=== PATIENT | male | born 1955 | race Caucasian/White ===

== ENCOUNTER 2021-05-30 03:31 | Inpatient (IN) | payer MEDICAID, SELFPAY ==
[2021-05-30] VITALS (15 sets, daily range): BP systolic 116–142; BP diastolic 68–93; PULSE 79–116; RESP 16–31; TEMP 35.4–37; O2SAT 92–99; BMI 23.8
--- NOTE | ~2021-05-30 | NM_ITS ---
EXAMINATION: PULMONARY PERFUSION STUDY CLINICAL INFORMATION: Rule out PE. COMPARISON: No previous lung scan is available for comparison. A radiograph of the chest dated 05/30/[address] scan of the chest on the same date, the same date as this lung scan, are available for comparison. TECHNIQUE: Following the intravenous administration of 4.0 mCi Tc-99m MAA an 8-view perfusion study was performed using a dual detector gamma scintillation camera. No ventilation images were obtained. FINDINGS: Perfusion images: No segmental perfusion defects are present. There is a mild decrease in activity in the apical and posterior segments of the right upper lobe but some perfusion in this region persists. There is minimal heterogeneity in the other lung forrester. The cardiac silhouette is prominent. The contemporaneous chest CT scan shows airspace opacities in the right lung apex which correspond to the perfusion abnormalities described above. Additional airspace opacities are present bilaterally. There is also cardiomegaly evident on the CT images. NM/NM pul perfusion IMPRESSION: Very low probability of pulmonary embolism. Nonspecific abnormalities which are most prominent in the right upper lobe are noted likely due to airspace disease or other parenchymal lung disease.
--- NOTE | ~2021-05-30 | XR_ITS ---
EXAMINATION: XR CHEST CLINICAL INFORMATION: CHF follow up COMPARISON: May 30, 2021 TECHNIQUE: AP portable view of the chest was obtained. FINDINGS: There has been improvement in left base disease and small pleural effusion. No new confluent parenchymal disease identified. There has been improvement in interstitial disease seen at the right base as well. No pneumothorax identified. Pacemaker in place. XR/XR chest 1V IMPRESSION: Improved pulmonary edema.
--- NOTE | ~2021-05-30 | XR_ITS ---
EXAMINATION: XR CHEST CLINICAL INFORMATION: Follow-up CHF COMPARISON: Previous chest x-ray from yesterday TECHNIQUE: Frontal view of the chest was obtained. FINDINGS: The cardiac silhouette is enlarged but stable. There is a left subclavian AICD with tip projecting over the ventricular apex. Hilar and mediastinal contours are unremarkable. The lungs are clear. There is no evidence of pulmonary edema. There is no pleural effusion. There are are mild degenerative changes of the spine. XR/XR chest 1V IMPRESSION: Stable enlargement of the cardiac silhouette. No evidence of CHF.
--- NOTE | ~2021-05-30 | CT_ITS ---
EXAM: NONCONTRAST CT OF THE CHEST; NONCONTRAST CT OF THE ABDOMEN AND PELVIS INDICATION: Shortness of breath, left-sided abdominal pain COMPARISON: None TECHNIQUE: No IV contrast was utilized. Multidetector helical imaging was performed through the chest, abdomen, and pelvis. Coronal and sagittal reformatted images were created at the technologist workstation. DOSE LOWERING TECHNIQUES: This CT examination was performed using dose optimization techniques as appropriate, variously including the following: - Automated exposure control - Adjustment of mA and/or kV according to patient size (this includes techniques or standardized protocols for targeted exams were dose is matched to indication/reason for exam; i.e. extremities or head) - Use of iterative reconstruction technique DLP: 838 mGy-cm FINDINGS: Chest: There are multifocal regions of groundglass bilaterally. There are curvilinear opacities towards the lung bases favoring subsegmental atelectasis or scarring. Trace pleural effusions are present. No pneumothorax. The visualized thyroid gland is unremarkable. There are subcentimeter mediastinal lymph nodes within the range of normal variation. There is cardiomegaly without pericardial effusion. Ascending aorta measures approximately 4.2 cm in diameter. Scattered atherosclerotic calcifications are present. Coronary artery calcifications are present. Stent is suspected in the LAD. No axillary lymphadenopathy is present. Multilevel degenerative changes are present in the thoracic spine. Abdomen/Pelvis: The liver is homogeneous in attenuation without intrahepatic biliary ductal dilatation. The gallbladder is unremarkable. The unenhanced spleen, pancreas, and adrenal glands are within normal limits. The unenhanced kidneys are unremarkable without hydronephrosis. No renal or ureteral calculi are present. Nonspecific bilateral perinephric stranding. The urinary bladder is unremarkable. The prostate and seminal vesicles are unremarkable. There is colonic diverticulosis without diverticulitis. No evidence of bowel obstruction. The appendix is unremarkable. Trace pelvic free fluid is noted. There is diffuse atherosclerotic calcification along the aorta. No retroperitoneal or pelvic lymphadenopathy is seen. Posterior fusion hardware is present at L4-L5. Status post right total hip arthroplasty. Degenerative changes are noted in the spine. CT/CT abdomen pelvis wo con IMPRESSION: 1. Multifocal pulmonary groundglass opacities bilaterally which could be secondary to edema or infection in the proper clinical setting. 2. Trace pleural effusions. 3. Cardiomegaly. 4. Dilated ascending aorta to approximately 4.2 cm. 5. Trace pelvic free fluid. 6. Colonic diverticulosis without diverticulitis.
--- NOTE | ~2021-05-30 | XR_ITS ---
EXAMINATION: XR CHEST CLINICAL INFORMATION: Shortness of breath COMPARISON: None TECHNIQUE: Frontal view of the chest was obtained. FINDINGS: Left-sided AICD lead tip overlies the right ventricle. Low lung volumes are symmetric. There is mild streaky left basilar retrocardiac opacity. There is prominence of the central vasculature and interstitium. No pneumothorax. Trace left pleural effusion is difficult to exclude. Cardiac silhouette is borderline enlarged. No acute osseous findings are seen. XR/XR chest 1V IMPRESSION: Prominent central vasculature and interstitium suggesting congestion and developing interstitial edema. Mild streaky left basilar opacities may reflect atelectasis.
--- NOTE | ~2021-05-30 | US_ITS ---
EXAMINATION: US VENOUS ULTRASOUND WITH DOPPLER LOWER EXTREMITY, BILATERAL CLINICAL INFORMATION: Bilateral lower extremity pain. Assess for occult DVT. COMPARISON: None TECHNIQUE: Ultrasound of the deep veins is performed from the hip to the calf with compression sonography and color and pulse Doppler assessment. Spectral analysis with color-flow imaging is performed. FINDINGS: RIGHT: There is normal venous compression and respiratory variation and augmented flow. The visualized common femoral vein, superficial femoral vein, profunda femoral vein, popliteal vein, and the trifurcation region shows no evidence of deep venous thrombosis. There is no significant popliteal fossa cyst. LEFT: There is normal venous compression and respiratory variation and augmented flow. The visualized common femoral vein, superficial femoral vein, profunda femoral vein, popliteal vein, and the trifurcation region shows no evidence of deep venous thrombosis. There is no significant popliteal fossa cyst. US/US venous duplex LE BI IMPRESSION: No DVT demonstrated in the bilateral lower extremity.
--- NOTE | 2021-05-30 03:43 | ECG_ITS ---
Test Reason : CHEST PAIN Blood Pressure : / mmHG Vent. Rate : 104 BPM Atrial Rate : 104 BPM P-R Int : 234 ms QRS Dur : 172 ms QT Int : 344 ms P-R-T Axes : 021 -67 105 degrees QTc Int : 452 ms Sinus tachycardia with 1st degree A-V block Possible Left atrial enlargement Right bundle branch block Left anterior fascicular block Bifascicular block Septal infarct , age undetermined Possible Lateral infarct , age undetermined Abnormal ECG No previous ECGs available Referred By: Padmini Jimenez Electronically Signed By:MIKEY ZULETA
[2021-05-30] MEDS: methylPREDNISolone Sod Succ 125 MG/2 ML VIAL IVPUSH (03:45)
--- NOTE | 2021-05-30 03:50 | ED.SOB ---
HPI - SOB/Dyspnea General Chief Complaint: Dyspnea Stated Complaint: SOB/CP Time Seen by Provider: 05/30/21 03:42 Source: patient and EMS Mode of arrival: EMS History of Present Illness HPI Narrative: 65-year-old male with history of CHF and COPD is brought in from [facility] by EMS with shortness of breath, chest pain, poor p.o. intake and coughing up brown phlegm for 2 days. as per EMS patient had SpO2 of 88% on his home dose of 3 L via nasal cannula. Patient denies any fever, chills and states that the chest pain is all throughout and into his abdomen. Otherwise, he denies any nausea, vomiting, fever, chills. Related Data Allergies Allergy/AdvReac Type Severity Reaction Status Date / Time No Known Allergies Allergy Unverified 05/30/21 03:42 Review of Systems Review of Systems: Pertinent positives and negatives as stated in HPI 10 point review of systems is otherwise negative. PMFSH Past Medical History Source: nursing notes reviewed Social History Social History Advance Directives: No Advance Directives Information Provided: No Physical Exam Vital Signs: Vital Signs: Last Vital Signs Pulse 93 05/30/21 07:05 Resp 25 H 05/30/21 07:05 BP 142/81 H 05/30/21 07:05 Pulse Ox 96 05/30/21 07:05 Body Mass Index 23.8 VITAL SIGNS: Reviewed. GENERAL: Well developed, well nourished, in no acute distress. HEAD: Normocephalic/atraumatic EYES: PERRLA, EOMI OROPHARYNX: no oral lesions noted, posterior pharynx clear NECK: Supple, no adenopathy LUNGS: Increased work of breathing with retractions, by basilar rales with rhonchi noted on the right SpO2<97> on BiPAP CARDIOVASCULAR: Regular rate and rhythm without noted murmurs, no JVD but extremity edema. ABDOMEN: Soft, non-tender, non-distended with bowel sounds SKIN: Inspection of the skin reveals no rashes NEUROLOGIC: Alert and oriented x 4. Strength and sensation to light touch were grossly intact x 4. Course Course Course Narrative: 65-year-old male with history and clinical presentation suggestive CHF exacerbation. Patient placed on BiPAP, received albuterol, Solu-Medrol, Bumex. Review VBG inconsistent with COPD exacerbation and in contrast chest x-ray and BNP consistent with acute CHF exacerbation with corresponding KAITY (however there are no prior records for comparison so unclear whether not patient has a component of CKD baseline). There is no evidence of infection at this time. All investigations were reviewed. The noted lactic acid elevation initially secondary to acute respiratory failure as repeat shows resolution. In addition, patient has elevated troponins at 51.7 but repeat does not meet delta 50% and thought to be demand related in the absence of clear EKG findings to suggest otherwise. Due to patient's complaint of left lateral chest wall pain patient underwent CT chest/abdomen/pelvis but without contrast given creatinine level was 1.67. There was noted ascending aortic dilation 4.2cm. Have tried to titrate patient off of BiPAP without success. Patient transitioned onto high-flow and will re-evaluate, but discussed the case with Dr. Fang. Records request was placed to [facility]. Signed out to Dr Sharma MDM - SOB/Dyspnea Lab Data Result diagrams: 05/30/21 03:55 05/30/21 03:55 Labs: Lab Results 05/30/21 05/30/21 05/30/21 Range/Units 03:55 03:55 03:55 WBC 10.5 (4.8-10.8) X10*3/uL RBC 4.79 (4.60-5.80) X10*6/uL Hgb 14.4 (14.0-18.0) g/dl Hct 44.5 (42-52) % MCV 92.9 (80-98) fL MCH 30.1 (27.0-33.0) pg MCHC 32.4 (31.0-36.0) g/dl RDW 17.7 H (11.0-16.0) % Plt Count 149 L (160-400) X10*3/uL MPV 11.7 (9.4-12.4) fL Immature Gran % (Auto) 0.3 (0.0-0.4) % Neut % (Auto) 81.3 H (45-73) % Lymph % (Auto) 6.7 L (20-40) % [place] % (Auto) 11.1 H (2-11) % Eos % (Auto) 0.3 (0-4) % Baso % (Auto) 0.3 (0-2) % Lymph # (Auto) 0.7 L (1.2-4.9) X10*3/uL [place] # (Auto) 1.2 (0.1-1.2) X10*3/uL Eos # (Auto) 0.0 (0.0-0.4) X10*3/uL Baso # (Auto) 0.0 (0.0-0.2) X10*3/uL Abs Immat Gran (auto) 0.03 (0.00-0.03) X10*3/uL Absolute Neuts (auto) 8.5 H (2.0-8.3) X10*3/uL Absolute Nucleated RBC 0.000 (0.0-0.012) X10*3/uL Nucleated RBC % (auto) 0.0 (0.0-0.2) /100WBC PT (9.9-13.0) SEC INR (0.9-1.1) VBG pH (7.32-7.43) VBG pCO2 mmHg VBG pO2 mmHg VBG HCO3 (22-26) mmol/L VBG O2 Saturation % VBG Base Excess mmol/L Sodium (135-145) mmol/L Potassium (3.3-5.1) mmol/L Chloride (96-108) mmol/L Carbon Dioxide (22-29) mmol/L Anion Gap (12-20) BUN (9-16) mg/dL Creatinine (0.5-1.4) mg/dL Estim Creat Clear Calc Estimated GFR Random Glucose (60-115) mg/dL Lactic Acid (0.5-2.0) mmol/L Lactic Acid Fup @ 2Hr (0.5-2.0) mmol/L Calcium (8.4-10.2) mg/dL Magnesium (1.6-2.6) mg/dL Total Bilirubin (0.0-1.0) mg/dL AST (5-37) U/L ALT (0-40) U/L Alkaline Phosphatase (39-117) U/L Troponin I High Sens 51.7 H* (<3.5-35.0) ng/L B-Natriuretic Peptide 4297 H (<100) pg/mL Total Protein (6.5-8.0) g/dL Albumin (3.5-5.0) g/dL Urine Color Urine Appearance Urine pH (5.0-8.0) Ur Specific [place] (1.005-1.025) Urine Protein (NEG-TRACE) MG/DL Urine Glucose (UA) (NEG) MG/DL Urine Ketones (NEG) MG/DL Urine Blood (NEG) Urine Nitrite (NEG) Ur Leukocyte Esterase (NEG) COVID-19 (ISHMAEL) Negative (Negative) COVID-19 Clin Com See Note 05/30/21 05/30/21 05/30/21 Range/Units 03:55 03:55 03:55 WBC (4.8-10.8) X10*3/uL RBC (4.60-5.80) X10*6/uL Hgb (14.0-18.0) g/dl Hct (42-52) % MCV (80-98) fL MCH (27.0-33.0) pg MCHC (31.0-36.0) g/dl RDW (11.0-16.0) % Plt Count (160-400) X10*3/uL MPV (9.4-12.4) fL Immature Gran % (Auto) (0.0-0.4) % Neut % (Auto) (45-73) % Lymph % (Auto) (20-40) % [place] % (Auto) (2-11) % Eos % (Auto) (0-4) % Baso % (Auto) (0-2) % Lymph # (Auto) (1.2-4.9) X10*3/uL [place] # (Auto) (0.1-1.2) X10*3/uL Eos # (Auto) (0.0-0.4) X10*3/uL Baso # (Auto) (0.0-0.2) X10*3/uL Abs Immat Gran (auto) (0.00-0.03) X10*3/uL Absolute Neuts (auto) (2.0-8.3) X10*3/uL Absolute Nucleated RBC (0.0-0.012) X10*3/uL Nucleated RBC % (auto) (0.0-0.2) /100WBC PT 19.6 H (9.9-13.0) SEC INR 1.7 H (0.9-1.1) VBG pH (7.32-7.43) VBG pCO2 mmHg VBG pO2 mmHg VBG HCO3 (22-26) mmol/L VBG O2 Saturation % VBG Base Excess mmol/L Sodium 141 (135-145) mmol/L Potassium 4.2 (3.3-5.1) mmol/L Chloride 106 (96-108) mmol/L Carbon Dioxide 22 (22-29) mmol/L Anion Gap 17 (12-20) BUN 32 H (9-16) mg/dL Creatinine 1.67 H (0.5-1.4) mg/dL Estim Creat Clear Calc 45.5 Estimated GFR 41 Random Glucose 138 H (60-115) mg/dL Lactic Acid 3.0 H* (0.5-2.0) mmol/L Lactic Acid Fup @ 2Hr (0.5-2.0) mmol/L Calcium 9.6 (8.4-10.2) mg/dL Magnesium 2.2 (1.6-2.6) mg/dL Total Bilirubin 0.6 (0.0-1.0) mg/dL AST 24 (5-37) U/L ALT 35 (0-40) U/L Alkaline Phosphatase 80 (39-117) U/L Troponin I High Sens (<3.5-35.0) ng/L B-Natriuretic Peptide (<100) pg/mL Total Protein 6.6 (6.5-8.0) g/dL Albumin 4.2 (3.5-5.0) g/dL Urine Color Urine Appearance Urine pH (5.0-8.0) Ur Specific [place] (1.005-1.025) Urine Protein (NEG-TRACE) MG/DL Urine Glucose (UA) (NEG) MG/DL Urine Ketones (NEG) MG/DL Urine Blood (NEG) Urine Nitrite (NEG) Ur Leukocyte Esterase (NEG) COVID-19 (ISHMAEL) (Negative) COVID-19 Clin Com 05/30/21 05/30/21 05/30/21 Range/Units 04:02 06:06 06:58 WBC (4.8-10.8) X10*3/uL RBC (4.60-5.80) X10*6/uL Hgb (14.0-18.0) g/dl Hct (42-52) % MCV (80-98) fL MCH (27.0-33.0) pg MCHC (31.0-36.0) g/dl RDW (11.0-16.0) % Plt Count (160-400) X10*3/uL MPV (9.4-12.4) fL Immature Gran % (Auto) (0.0-0.4) % Neut % (Auto) (45-73) % Lymph % (Auto) (20-40) % [place] % (Auto) (2-11) % Eos % (Auto) (0-4) % Baso % (Auto) (0-2) % Lymph # (Auto) (1.2-4.9) X10*3/uL [place] # (Auto) (0.1-1.2) X10*3/uL Eos # (Auto) (0.0-0.4) X10*3/uL Baso # (Auto) (0.0-0.2) X10*3/uL Abs Immat Gran (auto) (0.00-0.03) X10*3/uL Absolute Neuts (auto) (2.0-8.3) X10*3/uL Absolute Nucleated RBC (0.0-0.012) X10*3/uL Nucleated RBC % (auto) (0.0-0.2) /100WBC PT (9.9-13.0) SEC INR (0.9-1.1) VBG pH 7.33 (7.32-7.43) VBG pCO2 44 mmHg VBG pO2 37 mmHg VBG HCO3 23 (22-26) mmol/L VBG O2 Saturation 50.0 % VBG Base Excess -2.3 mmol/L Sodium (135-145) mmol/L Potassium (3.3-5.1) mmol/L Chloride (96-108) mmol/L Carbon Dioxide (22-29) mmol/L Anion Gap (12-20) BUN (9-16) mg/dL Creatinine (0.5-1.4) mg/dL Estim Creat Clear Calc Estimated GFR Random Glucose (60-115) mg/dL Lactic Acid (0.5-2.0) mmol/L Lactic Acid Fup @ 2Hr 2.0 (0.5-2.0) mmol/L Calcium (8.4-10.2) mg/dL Magnesium (1.6-2.6) mg/dL Total Bilirubin (0.0-1.0) mg/dL AST (5-37) U/L ALT (0-40) U/L Alkaline Phosphatase (39-117) U/L Troponin I High Sens (<3.5-35.0) ng/L B-Natriuretic Peptide (<100) pg/mL Total Protein (6.5-8.0) g/dL Albumin (3.5-5.0) g/dL Urine Color YELLOW Urine Appearance CLEAR Urine pH 5.5 (5.0-8.0) Ur Specific [place] 1.020 (1.005-1.025) Urine Protein NEG (NEG-TRACE) MG/DL Urine Glucose (UA) NEG (NEG) MG/DL Urine Ketones NEG (NEG) MG/DL Urine Blood NEG (NEG) Urine Nitrite NEG (NEG) Ur Leukocyte Esterase NEG (NEG) COVID-19 (ISHMAEL) (Negative) COVID-19 Clin Com ECG Data Attestation: I personally reviewed and interpreted this ECG as follows: Prior ECG tracings: not available for review Interpretation: 0403: Sinus tachycardia with first-degree AV block, RBBB,ND-234, QRS-172,QTc-452 0655: Sinus Rhythm with 1st degree AV block, RBBB, ND-230, QRS-176, QTc-532 Discharge Plan Discharge Clinical Impression: Acute respiratory failure, CHF exacerbation Patient Disposition: Admitted As Inpatient
[2021-05-30 04:02] LABS: MANUAL DIFF FLAG NO
[2021-05-30 04:04] LABS: Basophils Percent Auto 0.3 % (0-2); Eosinophils Percent Auto 0.3 % (0-4); Hematocrit 44.5 % (42-52); Hemoglobin 14.4 g/dl (14.0-18.0); Imm Gran Abs Auto 0.03 X10*3/uL (0.00-0.03); Imm Gran Pct Auto 0.3 % (0.0-0.4); Lymphocytes Absolute Auto 0.7 X10*3/uL (1.2-4.9); Lymphocytes Percent Auto 6.7 % (20-40); Mean Corpuscular HGB Conc 32.4 g/dl (31.0-36.0); Mean Corpuscular Hemoglobin 30.1 pg (27.0-33.0); Mean Corpuscular Volume 92.9 fL (80-98); Mean Platelet Volume 11.7 fL (9.4-12.4); Monocytes Absolute Auto 1.2 X10*3/uL (0.1-1.2); Monocytes Percent Auto 11.1 % (2-11); Neutrophils Absolute Auto 8.5 X10*3/uL (2.0-8.3); Neutrophils Percent Auto 81.3 % (45-73); Platelet Count 149 X10*3/uL (160-400); Red Blood Count 4.79 X10*6/uL (4.60-5.80); Red Cell Distribution Width 17.7 % (11.0-16.0); White Blood Count 10.5 X10*3/uL (4.8-10.8)
[2021-05-30 04:06] LABS: Venous Blood Gas Refer to POC result
[2021-05-30 04:07] LABS: VBG Base Excess -2.3 mmol/L; VBG HCO3 23 mmol/L (22-26); VBG pCO2 44 mmHg; VBG pH 7.33 (7.32-7.43); VBG pO2 37 mmHg
[2021-05-30 04:15] LABS: INTERNATIONAL NORM RATIO 1.7 (0.9-1.1); Prothrombin Time 19.6 SEC (9.9-13.0)
[2021-05-30] MEDS: Albuterol Sulfate (0.083%) 2.5 MG/3 ML VIAL.NEB 5 MG INHALE (04:17)
[2021-05-30 04:27] LABS: COVID-19 Test Negative (Negative); IDNOW Serial# 9DD0AD1C
[2021-05-30 04:32] LABS: Alanine Aminotransferase 35 U/L (0-40); Albumin Level 4.2 g/dL (3.5-5.0); Alkaline Phosphatase 80 U/L (39-117); Anion Gap 17 (12-20); Aspartate Amino Transferase 24 U/L (5-37); Bilirubin Total 0.6 mg/dL (0.0-1.0); Blood Urea Nitrogen 32 mg/dL (9-16); Calcium 9.6 mg/dL (8.4-10.2); Carbon Dioxide 22 mmol/L (22-29); Chloride 106 mmol/L (96-108); Creatinine Clr Calc Pharmacy 45.5; Estimated Glomerular Filt Rate 41; Glucose Random 138 mg/dL (60-115); Magnesium 2.2 mg/dL (1.6-2.6); Potassium 4.2 mmol/L (3.3-5.1); Sodium 141 mmol/L (135-145); Total Protein 6.6 g/dL (6.5-8.0)
[2021-05-30 04:34] LABS: B Type Natriuretic Peptide 4297 pg/mL (<100)
[2021-05-30] MEDS: Morphine Sulfate 2 MG/ML CARTRIDGE 1 MG IVPUSH ×2 (04:38→06:07)
[2021-05-30 04:41] LABS: Troponin-I High Sensitivity 51.7 ng/L (<3.5-35.0)
[2021-05-30] MEDS: Bumetanide 1 MG/4 ML VIAL 2 MG IVPUSH (05:11)
--- NOTE | 2021-05-30 05:23 | PC.NURSE ---
pt off to CT. pt placed on 15L NRB for transport. RT following bedside during transport to CT
[2021-05-30 06:01] LABS: Reflex Lactate? Lactic Acid Added
--- NOTE | 2021-05-30 06:43 | ECG_ITS ---
Test Reason : SOB Blood Pressure : / mmHG Vent. Rate : 095 BPM Atrial Rate : 095 BPM P-R Int : 230 ms QRS Dur : 176 ms QT Int : 424 ms P-R-T Axes : 031 -77 099 degrees QTc Int : 532 ms Sinus rhythm with 1st degree A-V block with occasional Premature ventricular complexes Possible Left atrial enlargement Right bundle branch block Left anterior fascicular block Bifascicular block Septal infarct (cited on or before 30-MAY-2021) T wave abnormality, consider lateral ischemia Abnormal ECG When compared with ECG of 30-MAY-2021 04:03, Premature ventricular complexes are now Present Borderline criteria for Lateral infarct are no longer Present Serial changes of Septal infarct Present Referred By: Padmini Jimenez Electronically Signed By:MIKEY ZULETA
[2021-05-30 07:13] LABS: Appearance Urine CLEAR; Color Urine YELLOW; Glucose Urine UA NEG (NEG); Leukocyte Esterase Urine NEG (NEG); Nitrite Urine NEG (NEG); PH 5.5 (5.0-8.0); Urine Blood NEG (NEG); Urine Ketones NEG (NEG); Urine Protein NEG (NEG-TRACE)
--- NOTE | 2021-05-30 07:25 | PC.NURSE ---
report taken from eric marshall pt here for acute chf/copd exac. on bipap att, rr even/unlabored, satting 96%. alert and oriented. iv dressing changed, repositioned in bed, offers no new complaints. vss. pending inpt admission. awaiting lab results. wctm.
[2021-05-30] MEDS: Bumetanide 1 MG/4 ML VIAL IVPUSH (09:11)
[2021-05-30] MEDS: HYDROmorphone HCl 2 MG/ML VIAL 1 MG IVPUSH (09:11)
--- NOTE | 2021-05-30 10:19 | W.PM.CCCN ---
History of Present Illness Data of Consult Service Date: 05/30/21 Requesting physician: Padmini Jimenez Primary Care Provider: Unknown Physician HPI I was asked by Dr. Jimenez to see Mr. Friedman in the ED bec of respiratory difficulty. The patient is a 65-year-old male, never seen here before at [facility].? He has h/o DC and CHF and COPD.? From what he told me, it sounds like his ejection fraction is about 25%.? 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 He also told me he has weak kidneys. He was brought in from [facility] by EMS because shortness of breath, chest pain, poor p.o. intake and coughing up brown phlegm for 2 days. ?At the scene, Sat was 88% on his home dose of 3 L NC oxygen. ?The patient denied fever, chills and stated that the chest pain was all throughout his chest and neck and into his abdomen.? It was sharp in nature.? Denied nausea, vomiting, fever, chills. In the ED, initial VS showed Hr 116, BP 1223/68,RR 30, Sat 97% on 40% biPAP.? He had no JVD.? He had bibasilar rales and rhonchi.? Labs were notable for white count of 10, hemoglobin 14, BUN/creatinine 32/1.6, potassium 4.2, bicarb 22, lactate 3.0, troponin 51, BNP 4297. EKG showed sinus tachycardia with 1st degree AV block and right bundle branch block with old septal infarct and loss of R-waves in V5 -6. No acute ST changes.? Repeat troponin was 68. The patient was given Dilaudid and Bumex 2 mg. He put out 200 cc, according to the ED nurse.? He was able to be weaned down to high-flow.? I was then called to see him. On my exam in the ED, the patient was fully awake, and talking easily.? He was in absolutely no distress, looked nontoxic, and not unwell. ?The main thing he was complaining about to me was the chest pain that he was having, as described above, which was surprising because, again ?he was in no distress, he certainly did not behave as if he was having significant pain. ?He did not describe tearing chest pain. ?Respiratory rate was about 20, very minimally labored, with deep breathing.? Sat was 93% on high-flow nasal cannula 50 L/50%.? Heart rate was 90s, blood pressure 142/81.? Temperature has not been recorded.? There is no jugular venous distention with the head of the bed at about 45 degrees.? He has bilateral rales.? There is no peripheral edema. Chest x-ray and noncontrast chest CT show pulmonary congestion consistent with pulmonary edema.? The ascending aorta is dilated to 4.2 cm. IMPRESSION:? History, exam, and labs, are consistent with acute congestive heart failure.? I do not think the chest pain that he is having is ischemic in nature.? I also doubt he is having aneurysmal pain, altho this should be explored further with thoracic or cardiology.? (Specifically, does he need an angiogram or SOTO?) Suggest treatment now with another 1 mg Dilaudid, another 2 mg Bumex, and afterload reduction.? I would give him 2 in of nitropaste now.? The patient should have an echo this morning, and Cardiology consulted.? Most importantly, we need to get his records from [facility] to look at his last echo, his BNP trend, and his recent renal indices.? Also, is his thoracic aortic dilatation noted previously. The patient may be admitted to [facility].? Please call back if further assistance is needed. D/W Dr. Sharma in the ED. Time:? 60 min. [facility] Social History Social History Alcohol intake: never Patient Tobacco Use Status: Former Tobacco user Smoked in Last 30 Days: No Use of substances other than those prescribed or required for medical reasons: No Advance Directives: No Advance Directives Information Provided: No Meds Allergies Allergy/AdvReac Type Severity Reaction Status Date / Time No Known Allergies Allergy Unverified 05/30/21 03:42 Physical Exam Vital Signs: Vital Signs: Last Vital Signs Pulse 84 05/30/21 10:03 Resp 23 H 05/30/21 10:03 BP 132/80 05/30/21 10:03 Pulse Ox 92 05/30/21 10:03 Body Mass Index 23.8 Results Labs CBC & Chem 7: 05/30/21 03:55 05/30/21 03:55 Labs: Short CBC 05/30/21 Range/Units 03:55 WBC 10.5 (4.8-10.8) X10*3/uL Hgb 14.4 (14.0-18.0) g/dl Hct 44.5 (42-52) % Plt Count 149 L (160-400) X10*3/uL BMP 05/30/21 03:55 Sodium 141 Potassium 4.2 Chloride 106 Carbon Dioxide 22 BUN 32 H Creatinine 1.67 H Calcium 9.6 Liver Function 05/30/21 Range/Units 03:55 Total Bilirubin 0.6 (0.0-1.0) mg/dL AST 24 (5-37) U/L ALT 35 (0-40) U/L Alkaline Phosphatase 80 (39-117) U/L Albumin 4.2 (3.5-5.0) g/dL Urine 05/30/21 Range/Units 06:58 Urine Color YELLOW Urine Appearance CLEAR Urine pH 5.5 (5.0-8.0) Ur Specific [place] 1.020 (1.005-1.025) Urine Protein NEG (NEG-TRACE) MG/DL Urine Glucose (UA) NEG (NEG) MG/DL
[2021-05-30] MEDS: Nitroglycerin 2 % Oint 1 GM Packet 0.5 INCH TRANSDERMA (11:19)
--- NOTE | 2021-05-30 15:28 | P.HPHOSP_ITS ---
History of Present Illness Date of Service: 05/30/21 Chief Complaint: Shortness of breath A 65 years old male patient with PMH CAD, CHF, COPD with presumed low EF per the patient who presented to the hospital with worsening shortness of breath and lethargy. The patient reports that for the last week or so he has been noticing worsening shortness of breath upon ambulation. He uses 3 L at home at baseline but that was not enough so he had to upper that to 5 L for the last today and to 30 L today with no feeling of relief. He denies any chest pain but reporting that he has dyspnea with minimal exertion, orthopnea and PNDs. 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 Reviewing the chart from [facility] I could not find any previous echo for him. His blood work is similar to what we found today. In the emergency he was found to be hypoxic and placed on BiPAP with fair response at the beginning. After removing the BiPAP the patient desaturated and felt treated bad so he was started on high-flow oxygen and evaluated by paint tester who recommended for the patient to be admitted to the medical floor. Admitted for further evaluation and treatment. Review of Systems Review of Systems: No fever, chills or weakness No chest pain, palpitation Dyspnea on exertion, shortness of breath at rest, PNDs No abdominal pain, nausea or vomiting No urinary symptoms No any rash or wounds PMFSH Social History Alcohol intake: never Patient Tobacco Use Status: Former Tobacco user Smoked in Last 30 Days: No Use of substances other than those prescribed or required for medical reasons: No Advance Directives: No Advance Directives Information Provided: No service: Yes Current occupational status: unemployed Meds Allergies Allergy/AdvReac Type Severity Reaction Status Date / Time No Known Allergies Allergy Unverified 05/30/21 03:42 Active Medications: Current Medications Generic Name Dose Route Start Last Admin Trade Name Freq PRN Reason Stop Dose Admin Acetaminophen 650 mg 05/30/21 15:21 Acetaminophen 325 Mg Tablet PO Q6H PRN Pain, Mild (Pain Scale 1-3) Furosemide 40 mg 05/30/21 17:00 Furosemide 40 Mg/4 Ml Vial IVPUSH BIDWM DEXTER Protocol Heparin Sodium (Porcine) 5,000 unit 05/30/21 19:30 Heparin Sodium,Porcine 5,000 Unit/Ml Vial SUBCUT Q12H [facility] Morphine Sulfate 2 mg 05/30/21 15:21 Morphine Sulfate 4 Mg/Ml Cartridge IVPUSH Q4H PRN Pain, Severe (Pain Scale 7-10) Protocol Ondansetron HCl 4 mg 05/30/21 15:21 Ondansetron Hcl 4 Mg/2 Ml Vial IVPUSH Q8H PRN Nausea and Vomiting Pharmacy Consult 1 each 05/30/21 15:21 Consult Rx Perform Med Rec MISCELLANE ONCE PRN Consult order Sodium Chloride 3 ml 05/30/21 16:00 05/30/21 15:27 0.9 % Sodium Chloride Flush 3 Ml Syringe IVFLUSH Not Given QSHIFT [facility] Home Medications Medication Instructions Recorded Confirmed Last Taken Type acetaminophen 325 mg tablet 325 mg PO TID@0900,1300,1700 05/30/21 05/30/21 Unknown History albuterol sulfate 90 mcg/actuation 2 puff INHALATION QID PRN 05/30/21 05/30/21 Unknown History aerosol inhaler (ProAir HFA) apixaban 5 mg tablet (Eliquis) 5 mg PO BID 05/30/21 05/30/21 Unknown History aspirin 81 mg capsule 81 mg PO DAILY 05/30/21 05/30/21 Unknown History bumetanide 2 mg tablet 2 mg PO BID@0600,1200 05/30/21 05/30/21 Unknown History clonazepam 0.5 mg tablet 0.5 mg PO BID@0900,1700 05/30/21 05/30/21 Unknown History digoxin 125 mcg (0.125 mg) tablet 125 mcg PO DAILY 05/30/21 05/30/21 Unknown History (Digitek) docusate sodium 100 mg tablet 100 mg PO DAILY 05/30/21 05/30/21 Unknown History ezetimibe 10 mg tablet 10 mg PO DAILY 05/30/21 05/30/21 Unknown History ferrous sulfate 325 mg (65 mg 325 mg PO DAILY 05/30/21 05/30/21 Unknown History iron) tablet melatonin 3 mg tablet 6 mg PO DAILY 05/30/21 05/30/21 Unknown History metoprolol succinate 25 mg 25 mg PO BEDTIME 05/30/21 05/30/21 Unknown History tablet,extended release 24 hr mirtazapine 45 mg tablet 45 mg PO BEDTIME 05/30/21 05/30/21 Unknown History olanzapine 20 mg tablet 20 mg PO BEDTIME 05/30/21 05/30/21 Unknown History sacubitril 24 mg-valsartan 26 mg 1 tab PO DAILY 05/30/21 05/30/21 Unknown History tablet (Entresto) sennosides 8.6 mg tablet (senna) 8.6 mg PO DAILY 05/30/21 05/30/21 Unknown History sertraline 50 mg tablet 125 mg PO DAILY 05/30/21 05/30/21 Unknown History tiotropium 2.5 mcg-olodaterol 2.5 2 puff INHALATION DAILY 05/30/21 05/30/21 Unknown History mcg/actuation mist for inhalation (Stiolto Respimat) Physical Exam Vital Signs and Narrative: Vital Signs: Last Vital Signs Pulse 84 05/30/21 10:03 Resp 18 05/30/21 12:30 BP 132/80 05/30/21 10:03 Pulse Ox 92 05/30/21 10:03 Body Mass Index 23.8 Const: Other: Constitutional : Alert, oriented, in mild respiratory distress Neck : Normal inspection, Supple Cardiovascular : RRR, S1 S2, trace bilateral lower extremity edema Respiratory : Decreased bilateral air entry, basal fine crackles with bilateral scattered wheezes Gastrointestinal: soft, lax, Normal bowel sounds, Non tender Skin : Warm, Dry Neurological : Alert & oriented x3, No focal deficit Results Labs CBC and Chem 7: 05/30/21 03:55 05/30/21 03:55 Labs: Laboratory Results - last 24 hr 05/30/21 05/30/21 05/30/21 03:55 03:55 03:55 MCV 92.9 MCH 30.1 MCHC 32.4 RDW 17.7 H Plt Count 149 L MPV 11.7 Immature Gran % (Auto) 0.3 Neut % (Auto) 81.3 H Lymph % (Auto) 6.7 L [place] % (Auto) 11.1 H Eos % (Auto) 0.3 Baso % (Auto) 0.3 Lymph # (Auto) 0.7 L [place] # (Auto) 1.2 Eos # (Auto) 0.0 Baso # (Auto) 0.0 Abs Immat Gran (auto) 0.03 Absolute Neuts (auto) 8.5 H Absolute Nucleated RBC 0.000 Nucleated RBC % (auto) 0.0 PT INR VBG pH VBG pCO2 VBG pO2 VBG HCO3 VBG O2 Saturation VBG Base Excess Anion Gap Estim Creat Clear Calc Estimated GFR Random Glucose Lactic Acid Lactic Acid Fup @ 2Hr Calcium Magnesium Total Bilirubin AST ALT Alkaline Phosphatase Troponin I High Sens 51.7 H* B-Natriuretic Peptide 4297 H Total Protein Albumin Urine Color Urine Appearance Urine pH Ur Specific [place] Urine Protein Urine Glucose (UA) Urine Ketones Urine Blood Urine Nitrite Ur Leukocyte Esterase COVID-19 (ISHMAEL) Negative COVID-19 Clin Com See Note 05/30/21 05/30/21 05/30/21 03:55 03:55 03:55 MCV MCH MCHC RDW Plt Count MPV Immature Gran % (Auto) Neut % (Auto) Lymph % (Auto) [place] % (Auto) Eos % (Auto) Baso % (Auto) Lymph # (Auto) [place] # (Auto) Eos # (Auto) Baso # (Auto) Abs Immat Gran (auto) Absolute Neuts (auto) Absolute Nucleated RBC Nucleated RBC % (auto) PT 19.6 H INR 1.7 H VBG pH VBG pCO2 VBG pO2 VBG HCO3 VBG O2 Saturation VBG Base Excess Anion Gap 17 Estim Creat Clear Calc 45.5 Estimated GFR 41 Random Glucose 138 H Lactic Acid 3.0 H* Lactic Acid Fup @ 2Hr Calcium 9.6 Magnesium 2.2 Total Bilirubin 0.6 AST 24 ALT 35 Alkaline Phosphatase 80 Troponin I High Sens B-Natriuretic Peptide Total Protein 6.6 Albumin 4.2 Urine Color Urine Appearance Urine pH Ur Specific [place] Urine Protein Urine Glucose (UA) Urine Ketones Urine Blood Urine Nitrite Ur Leukocyte Esterase COVID-19 (ISHMAEL) COVID-19 Clin Com 05/30/21 05/30/21 05/30/21 04:02 06:06 06:58 MCV MCH MCHC RDW Plt Count MPV Immature Gran % (Auto) Neut % (Auto) Lymph % (Auto) [place] % (Auto) Eos % (Auto) Baso % (Auto) Lymph # (Auto) [place] # (Auto) Eos # (Auto) Baso # (Auto) Abs Immat Gran (auto) Absolute Neuts (auto) Absolute Nucleated RBC Nucleated RBC % (auto) PT INR VBG pH 7.33 VBG pCO2 44 VBG pO2 37 VBG HCO3 23 VBG O2 Saturation 50.0 VBG Base Excess -2.3 Anion Gap Estim Creat Clear Calc Estimated GFR Random Glucose Lactic Acid Lactic Acid Fup @ 2Hr 2.0 Calcium Magnesium Total Bilirubin AST ALT Alkaline Phosphatase Troponin I High Sens 68.0 H* B-Natriuretic Peptide Total Protein Albumin Urine Color Urine Appearance Urine pH Ur Specific [place] Urine Protein Urine Glucose (UA) Urine Ketones Urine Blood Urine Nitrite Ur Leukocyte Esterase COVID-19 (ISHMAEL) COVID-19 Clin Com 05/30/21 06:58 MCV MCH MCHC RDW Plt Count MPV Immature Gran % (Auto) Neut % (Auto) Lymph % (Auto) [place] % (Auto) Eos % (Auto) Baso % (Auto) Lymph # (Auto) [place] # (Auto) Eos # (Auto) Baso # (Auto) Abs Immat Gran (auto) Absolute Neuts (auto) Absolute Nucleated RBC Nucleated RBC % (auto) PT INR VBG pH VBG pCO2 VBG pO2 VBG HCO3 VBG O2 Saturation VBG Base Excess Anion Gap Estim Creat Clear Calc Estimated GFR Random Glucose Lactic Acid Lactic Acid Fup @ 2Hr Calcium Magnesium Total Bilirubin AST ALT Alkaline Phosphatase Troponin I High Sens B-Natriuretic Peptide Total Protein Albumin Urine Color YELLOW Urine Appearance CLEAR Urine pH 5.5 Ur Specific [place] 1.020 Urine Protein NEG Urine Glucose (UA) NEG Urine Ketones NEG Urine Blood NEG Urine Nitrite NEG Ur Leukocyte Esterase NEG COVID-19 (ISHMAEL) COVID-19 Clin Com Imaging Radiologist's Impressions: Impressions Chest X-Ray 05/30/21 03:43 IMPRESSION: Prominent central vasculature and interstitium suggesting congestion and developing interstitial edema. Mild streaky left basilar opacities may reflect atelectasis. Abdomen/Pelvis CT 05/30/21 05:00 IMPRESSION: 1. Multifocal pulmonary groundglass opacities bilaterally which could be secondary to edema or infection in the proper clinical setting. 2. Trace pleural effusions. 3. Cardiomegaly. 4. Dilated ascending aorta to approximately 4.2 cm. 5. Trace pelvic free fluid. 6. Colonic diverticulosis without diverticulitis. Chest CT 05/30/21 05:00 IMPRESSION: 1. Multifocal pulmonary groundglass opacities bilaterally which could be secondary to edema or infection in the proper clinical setting. 2. Trace pleural effusions. 3. Cardiomegaly. 4. Dilated ascending aorta to approximately 4.2 cm. 5. Trace pelvic free fluid. 6. Colonic diverticulosis without diverticulitis. Assessment and Plan (1) Acute respiratory failure: Status: Acute (2) CHF exacerbation: Status: Acute A 65 years old male patient with PMH CAD, CHF, COPD with presumed low EF per the patient who presented to the hospital with worsening shortness of breath and lethargy. Acute hypoxic respiratory failure Secondary to CHF exacerbation No previous records were found next [place] to get an echo Oxygen supplement as needed Start IV Bumex 2 mg b.i.d. to get cardiology evaluation Intake and output Continue digoxin Continue metoprolol and aspirin home dose COPD exacerbation Start DuoNeb nebulizers Start steroids Atrial fibrillation Paroxysmal continue Eliquis Mood disorder Continue olanzapine and mirtazapine as prescribed DVT PPX Eliquis Quality Stroke Does the patient have a stroke diagnosis?: No VTE Prior VTE?: No VTE Risk Level:: Medical - moderate - high VTE Device Contraindication: Treatment Not Indicated VTE Drug Contraindication: N/A - Med Ordered
[2021-05-30] MEDS: Morphine Sulfate 4 MG/ML CARTRIDGE 2 MG IVPUSH ×2 (15:41→21:48)
[2021-05-30 16:07] LABS: D Dimer 419 NG/ML
[2021-05-30] MEDS: Furosemide 40 MG/4 ML VIAL IVPUSH (17:07)
--- NOTE | 2021-05-30 17:40 | MHC.CM.PN ---
CM met with admitted pt, pending transfer to room 358. Pt is a resident of [facility] [place]. Has been there for 3 months. 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 Pt was in [facility] and is not [employer]. [facility] not [facility]. Pt has Medicaid. Uses a cane and is Oxygen dependent at 2L. D/C plan is to return to [facility] when medically stable. Transportation will need to be arranged. CM to follow for d/c needs.
[2021-05-30] MEDS: Heparin Sodium,Porcine 5,000 UNIT/ML VIAL 5000 UNIT SUBCUT (19:44)
--- NOTE | 2021-05-30 19:55 | PC.NURSE ---
called to give report.
[2021-05-30] MEDS: 0.9 % Sodium Chloride Flush 3 ML SYRINGE IVFLUSH (21:48)
[2021-05-31] VITALS (10 sets, daily range): BP systolic 101–132; BP diastolic 68–90; PULSE 81–100; RESP 15–18; TEMP 36.2–36.6; O2SAT 92–97
[2021-05-31] MEDS: Morphine Sulfate 4 MG/ML CARTRIDGE 2 MG IVPUSH (02:15)
[2021-05-31 06:17] LABS: Hematocrit 43.8 % (42-52); Mean Corpuscular Hemoglobin 30.1 pg (27.0-33.0); Mean Corpuscular Volume 94.2 fL (80-98); Mean Platelet Volume 11.5 fL (9.4-12.4); Platelet Count 143 X10*3/uL (160-400); Red Blood Count 4.65 X10*6/uL (4.60-5.80); Red Cell Distribution Width 18.1 % (11.0-16.0)
[2021-05-31 06:28] LABS: Anion Gap 18 (12-20); Blood Urea Nitrogen 35 mg/dL (9-16); Calcium 9.5 mg/dL (8.4-10.2); Carbon Dioxide 24 mmol/L (22-29); Chloride 101 mmol/L (96-108); Creatinine Clr Calc Pharmacy 48.1; Estimated Glomerular Filt Rate 44; Glucose Random 121 mg/dL (60-115); Potassium 4.5 mmol/L (3.3-5.1); Sodium 138 mmol/L (135-145)
[2021-05-31 06:31] LABS: B Type Natriuretic Peptide 4335 pg/mL (<100)
[2021-05-31] MEDS: Albuterol/Iprat 2.5/0.5MG 3 ML AMPUL.NEB INHALE ×3 (07:38→19:47)
[2021-05-31] MEDS: HYDROmorphone HCl 0.5 MG/0.5 ML SYRINGE IVPUSH ×4 (07:46→21:59)
[2021-05-31] MEDS: methylPREDNISolone Sod Succ 40 MG/ML VIAL IVPUSH (07:47)
[2021-05-31] MEDS: Heparin Sodium,Porcine 5,000 UNIT/ML VIAL 5000 UNIT SUBCUT (07:47)
[2021-05-31] MEDS: 0.9 % Sodium Chloride Flush 3 ML SYRINGE IVFLUSH (07:47)
--- NOTE | 2021-05-31 08:48 | P.CDIC_ITS ---
CDI Concurrent Query Service Date: 05/31/21 Documentation Clarification: Please clarify if you are treating a proba ble/suspected/likely or confirmed: Acute hypoxic respiratory failure Other specified or unable to determine Provider Response: Other Other Diagnosis: Acute on chronic hypoxic respiratory failure PLEASE DO NOT DELETE/MODIFY EXISTING CONTENT Additional information is needed in order to code to the highest accuracy and appropriate Severity of Illness (SOI). Please clarify the information noted below in your progress notes and discharge summary. Risk Factors/Clinical Indicators/Treatments SpO2 of 88% on his home dose of 3 liters via nc, increased his oxygen to 5 liters with no improvement. ED - hypoxic placed on BIPAP w RR 25. Removed BIPAP in ED patient desaturated. Admit. Dx Acute hypoxic respiratory failure CDS: Nadira Gleason CCS, CDIS Contact Number: [phone] Please Review the information above and exercise your independent professional judgment in responding to the query. If you concur, pleas document in the PROGRESS NOTES and DISCHARGE SUMMARY. If you do not agree with the query, please document in the query above. THIS QUERY IS PART OF THE PERMANENT MEDICAL RECORD
--- NOTE | 2021-05-31 09:00 | CA_ITS ---
Transthoracic Echocardiogram Patient (Last, First, Middle): Lenny Friedman, Gender: Male Date of : 1955 Age: 65 Procedure Date: 05/31/2021 Procedure Type: Transthoracic Echocardiogram Location: S3E Height: 152.4 cm Weight: 75.3 kg BSA: 1.72 m2 Heart Rate: bpm BP: 132 / 80 mmHg Director [employer]: Referring MD: Pablo Rao MD Symptoms: Eval for CHF exacerbation Conclusions: - 1. Severely dilated left ventricle with severe LV systolic dysfunction with LVEF of 10-15% with large area wall motion abnormality in the LAD territory 2. RV is dilated with reduced systolic function 3. Moderate left atrial enlargement next 4. Moderate mitral regurgitation 5. Severely elevated right ventricular systolic pressure 6. No gross pericardial effusion Findings Procedure Information The patient receives contrast. Left Ventricle Severely increased left ventricular cavity size. There is normal left ventricular wall thickness. The left ventricular systolic function is severely decreased. The visually estimated ejection fraction is between 10 15%. There is evidence of regional wall motion abnormalities. Diastolic function is indeterminate on the basis of available data. Wall Motion Rest Echo Findings The inferior wall, anterolateral wall, and inferolateral wall are hypokinetic. The anterior wall, entire septum, the apex, and apical lateral segments are akinetic. Right Ventricle Mildly increased right ventricular cavity size. There is mild to moderately decreased right ventricular systolic function. There is an ICD wire seen in the right ventricle. Atria The left atrium is moderately dilated. There is no evidence of interatrial shunt. The right atrium is moderately dilated. Aortic Valve The aortic valve was not well visualized. There is no aortic valve stenosis. There is mild aortic valve regurgitation. Mitral Valve There is mild anterior and posterior mitral leaflet thickening. There is moderate mitral valve regurgitation. There is no mitral valve stenosis. Pulmonic Valve The pulmonic valve was not well visualized. There is trace to mild pulmonic valve regurgitation. Tricuspid Valve Normal tricuspid valve structure. There is mild to moderate tricuspid valve regurgitation. Significantly elevated right atrial pressure. Severe pulmonary hypertension is present. Great Vessels All visible segments of the aorta are normal in size. The pulmonary artery was not well visualized. Venous The inferior vena cava is severely dilated and does not collapse with inspiration. Pericardium/Pleural There is no evidence of pericardial effusion. Prior Study Comparison No prior study available for comparison. Measurements 2D Linear Measurements RVIDd: 4.27 RVIDd Index: 2.48 IVSd: 0.65 0.6-0.9/0.6-1.0 cm LVIDd: 7.30 3.9-5.3/4.2-5.9 cm LVIDd Index: 4.24 2.4-3.2/2.2-3.1 cm/m2 LVIDs: 6.55 2.0-3.6 cm LVPWd: 1.04 0.7-1.1 cm Ao Root: 3.90 2.1-3.5 cm LA Diam: 5.20 2.7-3.8/3.0-4.0 cm LAIDs Index: 3.02 1.5-2.3 cm/m2 LV Mass: 349.80 67-162/88-224 g LV Mass Index: 203.37 43-95/49-115 g/m2 LVOT Diam: 2.30 3.0+(-)1.3 cm 2D Systolic Function EF 4C: 16.40 >55% EF 2C: 15.90 >55% EF BiP: 16.50 >55% Mitral Valve MR Vol - PW Dopp: 34.80 MR VTI: 1.16 MR ERO: 30.00 MR Alias Gavin: 0.32 MR RAD: 0.80 Aortic Valve AoV Pk Gavin: 0.88 AoV Mn Gavin: 0.69 AoV VTI: 0.12 AoV Pk Grad: 3.00 Aov Mn Grad: 2.00 JONEL Cont.VTI: 2.65 LVOT LVOT Pk Gavin: 0.58 LVOT Mn Gavin: 0.39 LVOT VTI: 0.08 LVOT Pk Grad: 1.00 LVOT Mn Grad: 1.00 LVOT Diam: 2.30 LVOT Area: 4.15 Right Ventricle TAPSE (mm): 13.00 TVS' Gavin: 7.90 Tricuspid Valve TR Pk Gavin: 3.68 TR Pk Grad: 54.00 RA Press: 15.00 RVSP: 69.00 Great Vessels Aorta Ao Root-2D: 3.90 2.0-3.7 cm Ao Asc: 3.60 2.1-3.4 cm Ao Arch: 3.40 Updated in Other Vendor System with Status of Final Ahmet Chang MD electronically signed on 05/31/2021 12:22:16 PM with status of Final
--- NOTE | 2021-05-31 10:15 | PM.CNCAR ---
History of Present Illness History of Present Illness Date of Service: 05/31/21 Requesting physician: Pablo Rao Chief complaint: SOB Narrative: I was consulted to see Lenny in cardiology consultation today for hypoxic respiratory failure. Patient with complicated prior medical history, not all of the medical records are available. Patient was in assisted for about 15 years and recently released to [facility] residential facility in [place]. He has chronic respiratory failure requiring oxygen at nighttime for hypoxia for unclear reasons. Has prior history of coronary artery disease myocardial infarction about 2 years ago and says that he was treated with 2 stents, arteries unknown. However subsequent records from [facility] show that he has severe ischemic cardiomyopathy with LAD territory myocardial infarction with LVEF of 20% which is confirmed by the patient. He has had prior history of recurrent pleural effusions which has been treated at [facility] where he has undergone some form of thoracic surgery for recurrent pleural effusions. He also has prior history of pulmonary embolism is currently on chronic oral anticoagulation. He also has maintained on low-dose aspirin therapy. He says he takes a lot of medications but not sure as to what they are. Over the last few days he got progressively more short of breath and not able to lay flat and require increasing oxygen and despite that he continued to be short of breath. He then told the administration [facility] to send him to the emergency room which did reluctantly did as per him. In the emergency room he was noted to be severely hypoxic initially treated with BiPAP, which was then discontinued and he became hypoxic again. Initial admission to ICU but then was felt that he was stable enough to be admitted to medical floor. He was then maintained on high-flow oxygen for about 6 hours or so and has gradually taper his oxygen down to 3 liters/minute. He is comfortable. He said last night he had a large cough with a large red ball mucus/blood clot expectotaed. This morning he still has hemoptysis. He says since getting his bronchodilators this morning he is feeling a lot better. He has been given IV Bumex and continued with his neurohormonal modulation from outside. He has had minimal urine output however his hypoxia has improved. His BNP is significantly elevated in the 4000 range and his troponins are mildly elevated. He has had no chest pain. No palpitations. No excess salt diet. He says his weight has remained stable. He has not had any leg edema or abdominal distension. Review of Systems Constitutional: Constitutional: Reports no additional constitutional complaints, Denies chills, Denies fatigue and Denies fever(s) Eyes: Eyes: Reports no additional eye complaints ENT: Reports system reviewed and no additional complaints, except as documented Cardiovascular: Cardiovascular: Denies Abdominal Distension, Denies chest pain, Denies irregular heart rhythm, Denies leg edema, Denies lightheadedness, Denies Loss of Consciousness, Denies palpitations, Reports dyspnea on exertion and Reports orthopnea Respiratory: Respiratory: Reports hemoptysis and Reports dyspnea on exertion Gastrointestinal: Gastrointestinal: Reports no additional gastrointestinal complaints Genitourinary: Genitourinary: Reports no additional male genitourinary complaints Musculoskeletal: Musculoskeletal: Reports no additional musculoskeletal complaints Integumentary/Breasts: Skin/Breast: Reports system reviewed and no additional complaints, except as docu Neurologic: Reports system reviewed and no additional complaints, except as documented Psychiatric: Psychiatric: Reports no additional psychiatric complaints Endocrine: Endocrine: Denies fatigue and Denies palpitations Hematologic/Lymphatic: Hematologic/Lymphatic: Reports no additional hematologic/lymphatic complaints Allergic/Immunologic: Allergic/Immunologic: Reports no additional allergic/immunologic complaints [facility] Past Medical History Medical History (Updated 05/31/21 @ 10:23 by Ahmet Chang MD) CAD (coronary artery disease) Ischemic cardiomyopathy Surgical History Surgical History (Updated 05/31/21 @ 10:23 by Ahmet Chang MD) Stented coronary artery Social History Social History Household Members: Other Housing: Prison Do you presently have visiting nurse or other home services: Yes Alcohol intake: never Patient Tobacco Use Status: Former Tobacco user Smoked in Last 30 Days: No Use of substances other than those prescribed or required for medical reasons: No Have you been hit, kicked, punched, or otherwise hurt by someone within the past year? If so, by whom?: No Do you feel safe in your current relationship?: No Current Relationship Is there a partner from a previous relationship who is making you feel unsafe now?: No Are you made to feel afraid or neglected: No Advance Directives: No Advance Directives Information Provided: No Do you have thoughts of harming others: None Do you have a plan to hurt others: No Plan Recently lost weight without trying: No Nutrition Risks: No Nutritional Risk service: Yes Current occupational status: unemployed Meds Allergies Allergy/AdvReac Type Severity Reaction Status Date / Time No Known Allergies Allergy Unverified 05/30/21 03:42 Active Medications: Current Medications Generic Name Dose Route Start Last Admin Trade Name Freq PRN Reason Stop Dose Admin Acetaminophen 650 mg 05/30/21 15:21 Acetaminophen 325 Mg Tablet PO Q6H PRN Pain, Mild (Pain Scale 1-3) Acetaminophen 650 mg 05/31/21 10:00 Acetaminophen 325 Mg Tablet PO Q6H [facility] Acetaminophen 325 mg 05/31/21 13:00 Acetaminophen 325 Mg Tablet PO TID@0900,1300,1700 [facility] Albuterol Sulfate 2.5 mg 05/30/21 18:27 Albuterol Sulfate (0.083%) 2.5 Mg/3 Ml Vial.Neb INHALE RQ4H PRN Wheezing Albuterol Sulfate 2 puff 05/31/21 09:37 Albuterol Sulfate 90 Mcg 8 Gm Inhaler INHALE QID PRN Wheezing Albuterol/Ipratropium 3 ml 05/30/21 20:00 05/31/21 07:38 Albuterol/Iprat 2.5/0.5mg 3 Ml Ampul.Neb INHALE 3 ml RQ6H WHILE AWAKE [facility] Administration Apixaban 5 mg 05/31/21 09:45 Apixaban 5 Mg Tablet PO BID [facility] Aspirin 81 mg 05/31/21 09:45 Aspirin Enteric Coated 81 Mg Tablet. PO DAILY [facility] Bumetanide 2 mg 06/01/21 07:00 Bumetanide 1 Mg Tablet PO BID@0600,1200 [facility] Protocol Clonazepam 0.5 mg 05/31/21 17:00 Clonazepam 0.5 Mg Tablet PO BID@0900,1700 [facility] Digoxin 0.125 mg 05/31/21 09:45 Digoxin 0.125 Mg Tablet PO DAILY [facility] Docusate Sodium 100 mg 06/01/21 09:00 Docusate Sodium 100 Mg Capsule PO DAILY [facility] Ezetimibe 10 mg 05/31/21 09:45 Ezetimibe 10 Mg Tablet PO DAILY [facility] Ferrous Sulfate 324 mg 05/31/21 09:45 Ferrous Sulfate 324 Mg Tablet. PO DAILY [facility] Hydromorphone HCl 0.5 mg 05/31/21 06:05 05/31/21 07:46 Hydromorphone Hcl 0.5 Mg/0.5 Ml Syringe IVPUSH 0.5 mg Q4H PRN Administration Breakthrough Pain Protocol Bumetanide 25 mg/ IV 100 mls @ 2 mls/hr 05/31/21 10:15 Miscellaneous Supplies IVCONT .Q24H [facility] 0.5 MG/HR Melatonin 6 mg 06/01/21 09:00 Melatonin 3 Mg Tablet PO DAILY [facility] Methylprednisolone Sodium Succinate 40 mg 05/31/21 09:00 05/31/21 07:47 Methylprednisolone Sod Succ 40 Mg/Ml Vial IVPUSH 40 mg DAILY [facility] Administration Metoprolol Succinate 25 mg 05/31/21 09:45 Metoprolol Succinate Er 25 Mg Tab.Er.24h PO BEDTIME [facility] Protocol Mirtazapine 45 mg 05/31/21 21:00 Mirtazapine 15 Mg Tablet PO BEDTIME [facility] Olanzapine 20 mg 05/31/21 21:00 Olanzapine 10 Mg Tablet PO BEDTIME [facility] Ondansetron HCl 4 mg 05/30/21 15:21 Ondansetron Hcl 4 Mg/2 Ml Vial IVPUSH Q8H PRN Nausea and Vomiting Pharmacy Consult 1 each 05/30/21 15:21 Consult Rx Perform Med Rec MISCELLANE ONCE PRN Consult order Sacubitril/Valsartan 1 tab 06/01/21 09:00 Sacubitril/Valsartan 1 Tab Tablet PO DAILY [facility] Protocol Senna 8.6 mg 06/01/21 09:00 Sennosides 8.6 Mg Tablet PO DAILY [facility] Sertraline HCl 125 mg 06/01/21 09:00 Sertraline Hcl 25 Mg Tablet PO DAILY [facility] Sodium Chloride 3 ml 05/30/21 16:00 05/31/21 07:47 0.9 % Sodium Chloride Flush 3 Ml Syringe IVFLUSH 3 ml QSHIFT [facility] Administration Spironolactone 12.5 mg 06/01/21 09:00 Spironolactone 25 Mg Tablet PO DAILY [facility] Protocol Home Medications Medication Instructions Recorded Confirmed Last Taken Type acetaminophen 325 mg tablet 325 mg PO TID@0900,1300,1700 05/30/21 05/30/21 Unknown History albuterol sulfate 90 mcg/actuation 2 puff INHALATION QID PRN 05/30/21 05/30/21 Unknown History aerosol inhaler (ProAir HFA) apixaban 5 mg tablet (Eliquis) 5 mg PO BID 05/30/21 05/30/21 Unknown History aspirin 81 mg capsule 81 mg PO DAILY 05/30/21 05/30/21 Unknown History bumetanide 2 mg tablet 2 mg PO BID@0600,1200 05/30/21 05/30/21 Unknown History clonazepam 0.5 mg tablet 0.5 mg PO BID@0900,1700 05/30/21 05/30/21 Unknown History digoxin 125 mcg (0.125 mg) tablet 125 mcg PO DAILY 05/30/21 05/30/21 Unknown History (Samek) docusate sodium 100 mg tablet 100 mg PO DAILY 05/30/21 05/30/21 Unknown History ezetimibe 10 mg tablet 10 mg PO DAILY 05/30/21 05/30/21 Unknown History ferrous sulfate 325 mg (65 mg 325 mg PO DAILY 05/30/21 05/30/21 Unknown History iron) tablet melatonin 3 mg tablet 6 mg PO DAILY 05/30/21 05/30/21 Unknown History metoprolol succinate 25 mg 25 mg PO BEDTIME 05/30/21 05/30/21 Unknown History tablet,extended release 24 hr mirtazapine 45 mg tablet 45 mg PO BEDTIME 05/30/21 05/30/21 Unknown History olanzapine 20 mg tablet 20 mg PO BEDTIME 05/30/21 05/30/21 Unknown History sacubitril 24 mg-valsartan 26 mg 1 tab PO DAILY 05/30/21 05/30/21 Unknown History tablet (Entresto) sennosides 8.6 mg tablet (senna) 8.6 mg PO DAILY 05/30/21 05/30/21 Unknown History sertraline 50 mg tablet 125 mg PO DAILY 05/30/21 05/30/21 Unknown History tiotropium 2.5 mcg-olodaterol 2.5 2 puff INHALATION DAILY 05/30/21 05/30/21 Unknown History mcg/actuation mist for inhalation (Stiolto Respimat) Physical Exam Vital Signs: Vital Signs: Last Vital Signs Temp 97.3 F 05/31/21 07:23 Pulse 81 05/31/21 07:23 Resp 18 05/31/21 07:23 BP 107/73 05/31/21 07:23 Pulse Ox 93 05/31/21 07:23 Body Mass Index 23.8 Const: General: cooperative, comfortable, alert and awake Nutritional Appearance: average body habitus Orientation/consciousness: patient oriented x3 Limitations: no limitations HENMT: Head: Yes normocephalic and Yes atraumatic Neck: Neck: Yes trachea midline, Yes supple and Yes no JVD Resp: Effort & Inspection: normal respiratory effort Auscultation: crackles bilateral 1/[address] up and no wheezes Cardio: Jugular venous distension: no JVD Palpation: abnormal PMI displaced PMI Rate: regular rate Rhythm: regular rhythm Heart sounds: S1 normal heart sound present, S2 normal heart sound present, no click, no gallops, no murmurs and no rubs Peripheral pulses: Peripheral pulses 2+ throughout GI: Auscultation: normal bowel sounds Skin: General skin exam: no rashes or lesions noted Neuro: General: patient oriented x3 and no focal motor deficits Extrem: General: Yes no clubbing, cyanosis or edema Psych: Appearance: grossly normal Results Labs and Meds Result diagrams: 05/31/21 05:53 05/31/21 05:53 Lab results: Laboratory Results - last 24 hr 05/30/21 05/31/21 05/31/21 15:50 05:53 05:53 WBC 14.0 H RBC 4.65 Hgb 14.0 Hct 43.8 MCV 94.2 MCH 30.1 MCHC 32.0 RDW 18.1 H Plt Count 143 L MPV 11.5 Absolute Nucleated RBC 0.000 Nucleated RBC % (auto) 0.0 D-Dimer 419 Sodium 138 Potassium 4.5 Chloride 101 Carbon Dioxide 24 Anion Gap 18 BUN 35 H Creatinine 1.58 H Estim Creat Clear Calc 48.1 Estimated GFR 44 Random Glucose 121 H Calcium 9.5 B-Natriuretic Peptide 05/31/21 05:53 WBC RBC Hgb Hct MCV MCH MCHC RDW Plt Count MPV Absolute Nucleated RBC Nucleated RBC % (auto) D-Dimer Sodium Potassium Chloride Carbon Dioxide Anion Gap BUN Creatinine Estim Creat Clear Calc Estimated GFR Random Glucose Calcium B-Natriuretic Peptide 4335 H ECG Attestation: I personally reviewed and interpreted this ECG as follows: Interpretation: Normal sinus rhythm with PAC with right bundle-branch block and left anterior fascicular block Imaging Radiologist's impression: Impressions Pulmonary Perfusion Imaging 05/30/21 13:14 IMPRESSION: Very low probability of pulmonary embolism. Nonspecific abnormalities which are most prominent in the right upper lobe are noted likely due to airspace disease or other parenchymal lung disease. Venous Duplex 05/30/21 14:09 IMPRESSION: No DVT demonstrated in the bilateral lower extremity. Assessment and Plan (1) Acute respiratory failure: Status: Acute Patient presents with acute hypoxic respiratory failure, most likely multifactorial. He does have underlying severe ischemic cardiomyopathy with markedly elevated BNP. However clinically does not appear to be markedly fluid overloaded. He does have crackles in his lungs which could be due to underlying pulmonary process. However at this time would obtain an echocardiogram to assess LV systolic and diastolic function and filling pressures and evaluate for right atrial filling pressures. Continue neurohormonal modulation with Entresto and metoprolol. Add low-dose Aldactone therapy. Intensify diuretic regimen as current Bumex therapy is not lead to much urine output if there still was significant clinical suspicion for heart failure. Will increase Bumex to 0.5 mg an hour. Strict intake and output chart needs to be pursued. Follow BMP and BNP tomorrow. Consider pulmonary consultation given patient's hemoptysis. For now would hold his Eliquis and aspirin therapy till further pulmonary consult and workup has been performed, question alveolar hemorrhage. (2) Ischemic cardiomyopathy: Status: Acute Severe ischemic cardiomyopathy related prior myocardial infarction. Echocardiogram performed. Continue Entresto therapy. Maximize Entresto. Hold off on maximizing metoprolol at this point time. Continue digoxin. Should check digoxin assay. Add Aldactone as neurohormonal modulation. Follow BMP and BNP closely. Will follow the patient. Procedures Date of Service Date of Service: 05/31/21
--- NOTE | 2021-05-31 10:31 | P.CDIC_ITS ---
CDI Concurrent Query Service Date: 05/31/21 Documentation Clarification: Please clarify if you are treating a proba ble/suspected/likely or confirmed: Pneumonia treat, resolved Pneumonia rule out Other, undetermined Provider Response: Other Other Diagnosis: No pneumonia PLEASE DO NOT DELETE/MODIFY EXISTING CONTENT Additional information is needed in order to code to the highest accuracy and appropriate Severity of Illness (SOI). Please clarify the information noted below in your progress notes and discharge summary. Risk Factors/Clinical Indicators/Treatments SOB, hypoxia, SCHMITZ. Pt has low O2 likely secondary to pneumonia rather than CHF. High flow, oxygen sat 93% - BIPAP. CT 05/30 - multifocal pulmonary groundglass opacities which could be 2nd to edema or infection. CDS: Nadira Gleason CCS, CDIS Contact Number: [phone] Please Review the information above and exercise your independent professional judgment in responding to the query. If you concur, pleas document in the PROGRESS NOTES and DISCHARGE SUMMARY. If you do not agree with the query, please document in the query above. THIS QUERY IS PART OF THE PERMANENT MEDICAL RECORD
--- NOTE | 2021-05-31 11:27 | MHC.CM.PN ---
REFERRAL PLACED TO [facility], WHERE PATIENT IS IN FROM. CASE MANAGEMENT FOLLOWING FOR DISCHARGE PLANS.
--- NOTE | 2021-05-31 12:17 | P.PNIM_ITS ---
Subjective Subjective Date of Service: 05/31/21 Interval History: The patient was seen and evaluated this morning Laying in bed, still complaining of shortness of breath and feeling out of energy Decreased oxygen requirement of 5 L morning Denies any fever, chills or shortness of breath No reported other overnight events. Review of Systems No fever, chills or weakness No chest pain, palpitation Dyspnea on exertion, shortness of breath No abdominal pain, nausea or vomiting No urinary symptoms No any rash or wounds Physical Exam Vital Signs: Vital Signs: Last Vital Signs Temp 97.5 F 05/31/21 11:52 Pulse 92 05/31/21 11:52 Resp 18 05/31/21 11:52 BP 118/68 05/31/21 11:52 Pulse Ox 95 05/31/21 11:52 Body Mass Index 23.8 Const: Other: Constitutional : Alert, oriented, in mild respiratory distress Neck : Normal inspection, Supple Cardiovascular : RRR, S1 S2, trace bilateral lower extremity edema Respiratory : Decreased bilateral air entry, basal fine crackles with improving bilateral scattered wheezes Gastrointestinal: soft, lax, Normal bowel sounds, Non tender Skin : Warm, Dry Neurological : Alert & oriented x3, No focal deficit Objective Data Current Medications Generic Name Dose Route Start Last Admin Trade Name Freq PRN Reason Stop Dose Admin Acetaminophen 650 mg 05/30/21 15:21 Acetaminophen 325 Mg Tablet PO Q6H PRN Pain, Mild (Pain Scale 1-3) Acetaminophen 650 mg 05/31/21 10:00 Acetaminophen 325 Mg Tablet PO Q6H [facility] Albuterol Sulfate 2.5 mg 05/30/21 18:27 Albuterol Sulfate (0.083%) 2.5 Mg/3 Ml Vial.Neb INHALE RQ4H PRN Wheezing Albuterol Sulfate 2 puff 05/31/21 09:37 Albuterol Sulfate 90 Mcg 8 Gm Inhaler INHALE QID PRN Wheezing Albuterol/Ipratropium 3 ml 05/30/21 20:00 05/31/21 07:38 Albuterol/Iprat 2.5/0.5mg 3 Ml Ampul.Neb INHALE 3 ml RQ6H WHILE AWAKE [facility] Administration Apixaban 5 mg 05/31/21 09:45 05/31/21 10:43 Apixaban 5 Mg Tablet PO Not Given BID [facility] Aspirin 81 mg 05/31/21 09:45 05/31/21 10:43 Aspirin Enteric Coated 81 Mg Tablet. PO Not Given DAILY [facility] Bumetanide 2 mg 06/01/21 07:00 Bumetanide 1 Mg Tablet PO BID@0600,1200 [facility] Protocol Clonazepam 0.5 mg 05/31/21 17:00 Clonazepam 0.5 Mg Tablet PO BID@0900,1700 [facility] Digoxin 0.125 mg 05/31/21 09:45 Digoxin 0.125 Mg Tablet PO DAILY [facility] Docusate Sodium 100 mg 06/01/21 09:00 Docusate Sodium 100 Mg Capsule PO DAILY [facility] Ezetimibe 10 mg 05/31/21 09:45 Ezetimibe 10 Mg Tablet PO DAILY [facility] Ferrous Sulfate 324 mg 05/31/21 09:45 Ferrous Sulfate 324 Mg Tablet. PO DAILY [facility] Hydromorphone HCl 0.5 mg 05/31/21 06:05 05/31/21 07:46 Hydromorphone Hcl 0.5 Mg/0.5 Ml Syringe IVPUSH 0.5 mg Q4H PRN Administration Breakthrough Pain Protocol Bumetanide 25 mg/ IV 100 mls @ 2 mls/hr 05/31/21 11:00 Miscellaneous Supplies IVCONT .Q24H [facility] 0.5 MG/HR Melatonin 6 mg 06/01/21 09:00 Melatonin 3 Mg Tablet PO DAILY [facility] Methylprednisolone Sodium Succinate 40 mg 05/31/21 09:00 05/31/21 07:47 Methylprednisolone Sod Succ 40 Mg/Ml Vial IVPUSH 40 mg DAILY [facility] Administration Metoprolol Succinate 25 mg 05/31/21 09:45 Metoprolol Succinate Er 25 Mg Tab.Er.24h PO BEDTIME [facility] Protocol Mirtazapine 45 mg 05/31/21 21:00 Mirtazapine 15 Mg Tablet PO BEDTIME [facility] Olanzapine 20 mg 05/31/21 21:00 Olanzapine 10 Mg Tablet PO BEDTIME [facility] Ondansetron HCl 4 mg 05/30/21 15:21 Ondansetron Hcl 4 Mg/2 Ml Vial IVPUSH Q8H PRN Nausea and Vomiting Pharmacy Consult 1 each 05/30/21 15:21 Consult Rx Perform Med Rec MISCELLANE ONCE PRN Consult order Sacubitril/Valsartan 1 tab 06/01/21 09:00 Sacubitril/Valsartan 1 Tab Tablet PO DAILY [facility] Protocol Senna 8.6 mg 06/01/21 09:00 Sennosides 8.6 Mg Tablet PO DAILY [facility] Sertraline HCl 125 mg 06/01/21 09:00 Sertraline Hcl 25 Mg Tablet PO DAILY [facility] Sodium Chloride 3 ml 05/30/21 16:00 05/31/21 07:47 0.9 % Sodium Chloride Flush 3 Ml Syringe IVFLUSH 3 ml QSHIFT [facility] Administration Spironolactone 12.5 mg 06/01/21 09:00 Spironolactone 25 Mg Tablet PO DAILY [facility] Protocol Labs CBC & Chem 7: 05/31/21 05:53 05/31/21 05:53 Labs: Laboratory Results - last 24 hr 05/30/21 05/31/21 05/31/21 15:50 05:53 05:53 MCV 94.2 MCH 30.1 MCHC 32.0 RDW 18.1 H Plt Count 143 L MPV 11.5 Absolute Nucleated RBC 0.000 Nucleated RBC % (auto) 0.0 D-Dimer 419 Anion Gap 18 Estim Creat Clear Calc 48.1 Estimated GFR 44 Random Glucose 121 H Calcium 9.5 B-Natriuretic Peptide 05/31/21 05:53 MCV MCH MCHC RDW Plt Count MPV Absolute Nucleated RBC Nucleated RBC % (auto) D-Dimer Anion Gap Estim Creat Clear Calc Estimated GFR Random Glucose Calcium B-Natriuretic Peptide 4335 H Microbiology Microbiology Results: Microbiology 05/30/21 04:23 Blood Culture - Preliminary Blood - Venous No growth after 24 hours. 05/30/21 04:23 Blood Culture - Preliminary Blood - Venous No growth after 24 hours. Assessment and Plan (1) Acute on chronic respiratory failure with hypoxia: Status: Acute (2) Ischemic cardiomyopathy: Status: Acute (3) CHF exacerbation: Status: Acute Assessment and Plan: A 65 years old male patient with PMH CAD, CHF, COPD with presumed low EF per the patient who presented to the hospital with worsening shortness of breath and lethargy. Acute on chronic hypoxic respiratory failure Secondary to CHF exacerbation Improving Wean down oxygen as tolerated Start Bumex infusion 0.5 mg per hour Echo showing EF of 10-15% with wall motion abnormality cardiology evaluation appreciated Intake and output Continue digoxin Continue metoprolol and aspirin home dose Hemoptysis Reporting multiple episodes of coughing up blood since yesterday with clots Unclear if it is a result of coughing or from alveolar hemorrhage Patient on Eliquis seems for history of PEs vs PAF Hold aspirin and Eliquis To get pulmonology evaluation for possible bronchoscopy COPD exacerbation DuoNeb nebulizers Continue steroids Mood disorder Continue olanzapine and mirtazapine as prescribed History cardiomyopathy Ischemic in etiology Continue Entresto, metoprolol and add spironolactone DVT PPX SCDs Quality Stroke Does the patient have a stroke diagnosis?: No VTE Prior VTE?: No VTE Risk Level:: Medical - moderate - high VTE Device Contraindication: Treatment Not Indicated VTE Drug Contraindication: N/A - Med Ordered
[2021-05-31] MEDS: Digoxin 0.125 MG TABLET PO (12:21)
[2021-05-31] MEDS: Ezetimibe 10 MG TABLET PO (12:21)
[2021-05-31] MEDS: Metoprolol Succinate ER 25 MG TAB.ER.24H PO ×2 (12:21→20:56)
[2021-05-31] MEDS: Ferrous Sulfate 324 MG TABLET.DR PO (12:21)
[2021-05-31] MEDS: Acetaminophen 325 MG TABLET 650 MG PO ×3 (12:22→20:57)
[2021-05-31] MEDS: Bumetanide 25 MG in Container,Empty 0 ML IVCONT (12:22)
[2021-05-31] MEDS: clonazePAM 0.5 MG TABLET PO ×2 (12:37→16:35)
--- NOTE | 2021-05-31 17:11 | PM.CNPUL ---
History of Present Illness History of Present Illness Consult date: 05/31/21 Reason for consult: dyspnea and hypoxemia Chief complaint: SOB Narrative: THIS 65 YEARS OLD GENTLEMAN HAS BEEN HOSPITALIZED HERE SINCE YESTERDAY. HE CAME TO THE EMERGENCY ROOM BECAUSE OF INCREASING SHORTNESS OF BREATH FOR THE PAST FEW DAYS. HE HAD NO SYMPTOMS OF ANY RESPIRATORY INFECTION SUCH FEVER OR CHILLS. ALSO DID NOT HAVE ANY CHEST PAIN HE STARTED HAVING INCREASED SHORTNESS OF BREATH AND INCREASED HIS O2 FROM 3 L/MINUTE TO 5 L BUT WAS STILL SHORT OF BREATH. HE WAS ON ABLE TO LIE FLAT. FOR THE PAST FEW NIGHTS HAS HAD DYSPNEA DURING THE NIGHT. WHEN HERE I HAVE TO THE EMERGENCY ROOM HE WAS QUITE HYPOXEMIC AND WAS STARTED ON BIPAP, LATER ON IT WAS CHANGED TO HIGH-FLOW, AND THEN BACK TO NASAL CANNULA. TODAY HE HAD A SPEC OF PRATEEK PHLEGM ON COUGH . THE PATIENT HAS HISTORY OF MILD CHRONIC OBSTRUCTIVE PULMONARY DISEASE, FOR WHICH HE USES ALBUTEROL INHALER ONLY P.R.N. AND ALSO ON STIOLTO RESPIMAT 2 PUFFS DAILY HE HAS HISTORY OF SMOKING IN THE REMOTE PAST. HIS MAIN PROBLEM AT THIS TIME IS THE ISCHEMIC CARDIOMYOPATHY WITH LOW EJECTION FRACTION, AND ONGOING CONGESTIVE HEART FAILURE. HE IS ON LONG-TERM ANTICOAGULATION, AND DIURETIC THERAPY HE HAS ALSO BEEN ON HOME OXYGEN THERAPY FOR A WHILE . PATIENT HAS HISTORY OF ANXIETY AND DEPRESSION WHICH IS BEING TREATED WITH MEDS. Review of Systems Review of Systems: Yes all other systems are reviewed and are negative Constitutional: Constitutional: Reports fatigue Eyes: Eyes: Reports no additional eye complaints ENT: Reports system reviewed and no additional complaints, except as documented Cardiovascular: Cardiovascular: Reports as per HPI Respiratory: Respiratory: Reports as per HPI Gastrointestinal: Gastrointestinal: Reports no additional gastrointestinal complaints Musculoskeletal: Musculoskeletal: Reports myalgias and Reports muscle weakness Integumentary/Breasts: Skin/Breast: Reports system reviewed and no additional complaints, except as docu Neurologic: Reports system reviewed and no additional complaints, except as documented Psychiatric: Psychiatric: Reports anxiety and Reports depression Endocrine: Endocrine: Reports fatigue PMF Past Medical History Medical History (Updated 05/31/21 @ 17:28 by Arnaldo Santoyo MD) CAD (coronary artery disease) Hemoptysis Ischemic cardiomyopathy Pneumonitis Surgical History Surgical History (Updated 05/31/21 @ 10:23 by Ahmet Chang MD) Stented coronary artery Social History Social History Household Members: Other Housing: Jail Do you presently have visiting nurse or other home services: Yes Alcohol intake: never Patient Tobacco Use Status: Former Tobacco user Smoked in Last 30 Days: No Use of substances other than those prescribed or required for medical reasons: No Currently Displaying Signs/Symptoms of Drug Intoxication Withdrawal: No Have you been hit, kicked, punched, or otherwise hurt by someone within the past year? If so, by whom?: No Do you feel safe in your current relationship?: No Current Relationship Is there a partner from a previous relationship who is making you feel unsafe now?: No Are you made to feel afraid or neglected: No Advance Directives: No Advance Directives Information Provided: No Do you have thoughts of harming others: None Do you have a plan to hurt others: No Plan Recently lost weight without trying: No Nutrition Risks: No Nutritional Risk service: Yes Current occupational status: unemployed Meds Allergies Allergy/AdvReac Type Severity Reaction Status Date / Time No Known Allergies Allergy Unverified 05/30/21 03:42 Active Medications: Current Medications Generic Name Dose Route Start Last Admin Trade Name Freq PRN Reason Stop Dose Admin Acetaminophen 650 mg 05/30/21 15:21 Acetaminophen 325 Mg Tablet PO Q6H PRN Pain, Mild (Pain Scale 1-3) Acetaminophen 650 mg 05/31/21 10:00 05/31/21 16:36 Acetaminophen 325 Mg Tablet PO 650 mg Q6H [facility] Administration Albuterol Sulfate 2.5 mg 05/30/21 18:27 Albuterol Sulfate (0.083%) 2.5 Mg/3 Ml Vial.Neb INHALE RQ4H PRN Wheezing Albuterol Sulfate 2 puff 05/31/21 09:37 Albuterol Sulfate 90 Mcg 8 Gm Inhaler INHALE QID PRN Wheezing Albuterol/Ipratropium 3 ml 05/30/21 20:00 05/31/21 13:49 Albuterol/Iprat 2.5/0.5mg 3 Ml Ampul.Neb INHALE 3 ml RQ6H WHILE AWAKE [facility] Administration Apixaban 5 mg 05/31/21 09:45 05/31/21 10:43 Apixaban 5 Mg Tablet PO Not Given BID [facility] Aspirin 81 mg 05/31/21 09:45 05/31/21 10:43 Aspirin Enteric Coated 81 Mg Tablet. PO Not Given DAILY [facility] Clonazepam 0.5 mg 05/31/21 17:00 05/31/21 16:35 Clonazepam 0.5 Mg Tablet PO 0.5 mg BID@0900,1700 [facility] Administration Digoxin 0.125 mg 05/31/21 09:45 05/31/21 12:21 Digoxin 0.125 Mg Tablet PO 0.125 mg DAILY [facility] Administration Docusate Sodium 100 mg 06/01/21 09:00 Docusate Sodium 100 Mg Capsule PO DAILY [facility] Ezetimibe 10 mg 05/31/21 09:45 05/31/21 12:21 Ezetimibe 10 Mg Tablet PO 10 mg DAILY [facility] Administration Ferrous Sulfate 324 mg 05/31/21 09:45 05/31/21 12:21 Ferrous Sulfate 324 Mg Tablet. PO 324 mg DAILY [facility] Administration Hydromorphone HCl 0.5 mg 05/31/21 06:05 05/31/21 12:20 Hydromorphone Hcl 0.5 Mg/0.5 Ml Syringe IVPUSH 0.5 mg Q4H PRN Administration Breakthrough Pain Protocol Bumetanide 25 mg/ IV 100 mls @ 2 mls/hr 05/31/21 11:00 05/31/21 12:22 Miscellaneous Supplies IVCONT 0.5 mg/hr .Q24H [facility] 2 mls/hr Administration 0.5 MG/HR Melatonin 6 mg 06/01/21 09:00 Melatonin 3 Mg Tablet PO DAILY [facility] Methylprednisolone Sodium Succinate 40 mg 05/31/21 09:00 05/31/21 07:47 Methylprednisolone Sod Succ 40 Mg/Ml Vial IVPUSH 40 mg DAILY [facility] Administration Metoprolol Succinate 25 mg 05/31/21 09:45 05/31/21 12:21 Metoprolol Succinate Er 25 Mg Tab.Er.24h PO 25 mg BEDTIME [facility] Administration Protocol Mirtazapine 45 mg 05/31/21 21:00 Mirtazapine 15 Mg Tablet PO BEDTIME [facility] Olanzapine 20 mg 05/31/21 21:00 Olanzapine 10 Mg Tablet PO BEDTIME [facility] Ondansetron HCl 4 mg 05/30/21 15:21 Ondansetron Hcl 4 Mg/2 Ml Vial IVPUSH Q8H PRN Nausea and Vomiting Pharmacy Consult 1 each 05/30/21 15:21 Consult Rx Perform Med Rec MISCELLANE ONCE PRN Consult order Sacubitril/Valsartan 1 tab 06/01/21 09:00 Sacubitril/Valsartan 1 Tab Tablet PO DAILY [facility] Protocol Senna 8.6 mg 06/01/21 09:00 Sennosides 8.6 Mg Tablet PO DAILY [facility] Sertraline HCl 125 mg 06/01/21 09:00 Sertraline Hcl 25 Mg Tablet PO DAILY [facility] Sodium Chloride 3 ml 05/30/21 16:00 05/31/21 16:37 0.9 % Sodium Chloride Flush 3 Ml Syringe IVFLUSH Not Given QSHIFT [facility] Spironolactone 12.5 mg 06/01/21 09:00 Spironolactone 25 Mg Tablet PO DAILY [facility] Protocol Home Medications Medication Instructions Recorded Confirmed Last Taken Type acetaminophen 325 mg tablet 325 mg PO TID@0900,1300,1700 05/30/21 05/30/21 Unknown History albuterol sulfate 90 mcg/actuation 2 puff INHALATION QID PRN 05/30/21 05/30/21 Unknown History aerosol inhaler (ProAir HFA) apixaban 5 mg tablet (Eliquis) 5 mg PO BID 05/30/21 05/30/21 Unknown History aspirin 81 mg capsule 81 mg PO DAILY 05/30/21 05/30/21 Unknown History bumetanide 2 mg tablet 2 mg PO BID@0600,1200 05/30/21 05/30/21 Unknown History clonazepam 0.5 mg tablet 0.5 mg PO BID@0900,1700 05/30/21 05/30/21 Unknown History digoxin 125 mcg (0.125 mg) tablet 125 mcg PO DAILY 05/30/21 05/30/21 Unknown History (Digitek) docusate sodium 100 mg tablet 100 mg PO DAILY 05/30/21 05/30/21 Unknown History ezetimibe 10 mg tablet 10 mg PO DAILY 05/30/21 05/30/21 Unknown History ferrous sulfate 325 mg (65 mg 325 mg PO DAILY 05/30/21 05/30/21 Unknown History iron) tablet melatonin 3 mg tablet 6 mg PO DAILY 05/30/21 05/30/21 Unknown History metoprolol succinate 25 mg 25 mg PO BEDTIME 05/30/21 05/30/21 Unknown History tablet,extended release 24 hr mirtazapine 45 mg tablet 45 mg PO BEDTIME 05/30/21 05/30/21 Unknown History olanzapine 20 mg tablet 20 mg PO BEDTIME 05/30/21 05/30/21 Unknown History sacubitril 24 mg-valsartan 26 mg 1 tab PO DAILY 05/30/21 05/30/21 Unknown History tablet (Entresto) sennosides 8.6 mg tablet (senna) 8.6 mg PO DAILY 05/30/21 05/30/21 Unknown History sertraline 50 mg tablet 125 mg PO DAILY 05/30/21 05/30/21 Unknown History tiotropium 2.5 mcg-olodaterol 2.5 2 puff INHALATION DAILY 05/30/21 05/30/21 Unknown History mcg/actuation mist for inhalation (Stiolto Respimat) Physical Exam Vital Signs: Vital Signs: Last Vital Signs Temp 97.7 F 05/31/21 15:33 Pulse 98 05/31/21 15:33 Resp 18 05/31/21 15:33 BP 110/79 05/31/21 15:33 Pulse Ox 97 05/31/21 15:33 Body Mass Index 23.8 Const: General: comfortable, no acute distress, alert and awake Orientation/consciousness: patient oriented x3 HENMT: Head: Yes normal to inspection General nose exam: No nasal polyps present and No nasal discharge present Face and sinus: Yes sinuses nontender Mouth: oropharynx normal Throat: Yes posterior oropharynx normal Eyes: General: appearance normal, both eyes and all related structures Neck: Neck: Yes normal visual inspection, Yes no lymphadenopathy, Yes trachea midline and Yes JVD (UPTO MID NECK ) Thyroid: Thyroid normal Chest: Chest palpation & inspection: normal inspection of the chest, normal palpation of entire chest wall and no tenderness Resp: Other: BREATH SOUNDS ARE DISTANT, BUT EQUAL ON BOTH SIDES. NO CREPITATIONS OR WHEEZES ARE HEARD AT THIS TIME. Cardio: Palpation: normal PMI Rate: regular rate Rhythm: regular rhythm Heart sounds: no gallops and no murmurs GI: Palpation (GI): Soft to palpation, nontender, No hepatosplenomegaly present and no masses Auscultation: normal bowel sounds Back/Spine/Pelvis: Thoracic/Lumbar Spine: thoracic and lumbar spine normal to inspection and thoraco-lumbar ROM limited Skin: General skin exam: no rashes or lesions noted Neuro: General: patient oriented x3, No gait normal (NON AMBULATORY) and no focal motor deficits Cranial nerves: Yes CN's II-XII intact bilaterally Extrem: General: Yes normal to inspection, Yes no calf tenderness and Yes edema (1+ EDEMA) Psych: Appearance: grossly normal Speech and movement: Normal speech and movement present Results Laboratory Findings CBC and BMP: 05/31/21 05:53 05/31/21 05:53 ABG, PT/INR, D-dimer: PT/INR, D-dimer PT 19.6 SEC (9.9-13.0) H 05/30/21 03:55 INR 1.7 (0.9-1.1) H 05/30/21 03:55 D-Dimer 419 NG/ML 05/30/21 15:50 Abnormal lab findings: Abnormal Labs 05/30/21 05/30/21 05/30/21 03:55 03:55 03:55 WBC RDW 17.7 H Plt Count 149 L Neut % (Auto) 81.3 H Lymph % (Auto) 6.7 L [place] % (Auto) 11.1 H Lymph # (Auto) 0.7 L Absolute Neuts (auto) 8.5 H PT 19.6 H INR 1.7 H BUN Creatinine Random Glucose Lactic Acid Troponin I High Sens 51.7 H* B-Natriuretic Peptide 4297 H 05/30/21 05/30/21 05/30/21 03:55 03:55 06:58 WBC RDW Plt Count Neut % (Auto) Lymph % (Auto) [place] % (Auto) Lymph # (Auto) Absolute Neuts (auto) PT INR BUN 32 H Creatinine 1.67 H Random Glucose 138 H Lactic Acid 3.0 H* Troponin I High Sens 68.0 H* B-Natriuretic Peptide 05/31/21 05/31/21 05/31/21 05:53 05:53 05:53 WBC 14.0 H RDW 18.1 H Plt Count 143 L Neut % (Auto) Lymph % (Auto) [place] % (Auto) Lymph # (Auto) Absolute Neuts (auto) PT INR BUN 35 H Creatinine 1.58 H Random Glucose 121 H Lactic Acid Troponin I High Sens B-Natriuretic Peptide 4335 H Microbiology: Microbiology 05/30/21 04:23 Blood - Venous Blood Culture - Preliminary No growth after 24 hours. 05/30/21 04:23 Blood - Venous Blood Culture - Preliminary No growth after 24 hours. Diagnostic Findings Chest x-ray: report reviewed CT scan - chest: report reviewed Echocardiogram Interpretation: CT SCAN OF THE CHEST, SCATTERED, MULTIPLE GROUND-GLASS DENSITIES NOTED ON BOTH SIDES. THERE IS GENERALISED PULMONARY CONGESTION. SMALL BILATERAL EFFUSIONS NUCLEAR SCAN, SHOWS LOW PROBABILITY OF PULMONARY EMBOLISM Assessment and Plan (1) Acute on chronic respiratory failure with hypoxia: Status: Acute I THINK IT IS INCREASED CONGESTIVE HEART FAILURE AND ALSO NONSPECIFIC PNEUMONITIS WHICH HAS CAUSED INCREASED HYPOXEMIA. CURRENTLY IMPROVED. RECOMMEND KEEP HIM ON NASAL CANNULA 3-4 L/MINUTE LONG O2 SAT IS ABOVE 90% OTHER OPTIONS ARE TO USE VENTIMASK , OR HIGH-FLOW O2 , IF NEEDED (2) Pneumonitis: Status: Acute HE HAS FINDINGS OF ACUTE NONSPECIFIC PNEUMONITIS ON BOTH SIDES, DOES NOT SEEM TO HAVE ANY ACUTE INFECTION AT THIS TIME. COVID TEST NEGATIVE. THESE MAY BE DUE TO CHF/PULMONARY EDEMA. RECC : SOLU-MEDROL 40 MG IV ONCE A DAY FOR A FEW DAYS, EMPIRICALLY. (3) Hemoptysis: Status: Acute HEMOPTYSIS IS MINIMAL AT THIS TIME AND I THINK IT IS DUE TO ANTICOAGULATION. IF IT GETS ANY WORSE WE SHOULD HOLD OFF ANTICOAGULANTS WELL ASPIRIN FOR A FEW DAYS Procedures Date of Service Date of Service: 05/31/21
[2021-05-31] MEDS: OLANZapine 10 MG TABLET 20 MG PO (20:56)
[2021-05-31] MEDS: Mirtazapine 15 MG TABLET 45 MG PO (20:57)
[2021-06-01] VITALS (11 sets, daily range): BP systolic 113–122; BP diastolic 73–86; PULSE 62–92; RESP 16–18; TEMP 36–36.5; O2SAT 92–98
[2021-06-01] MEDS: HYDROmorphone HCl 0.5 MG/0.5 ML SYRINGE IVPUSH ×7 (02:23→22:19)
[2021-06-01] MEDS: Acetaminophen 325 MG TABLET 650 MG PO ×4 (05:22→22:19)
[2021-06-01 06:39] LABS: Hematocrit 38.7 % (42-52); Hemoglobin 12.6 g/dl (14.0-18.0); Mean Corpuscular HGB Conc 32.6 g/dl (31.0-36.0); Mean Corpuscular Hemoglobin 29.9 pg (27.0-33.0); Mean Corpuscular Volume 91.7 fL (80-98); Platelet Count 138 X10*3/uL (160-400); Red Blood Count 4.22 X10*6/uL (4.60-5.80); Red Cell Distribution Width 17.9 % (11.0-16.0); White Blood Count 11.6 X10*3/uL (4.8-10.8)
[2021-06-01 07:10] LABS: B Type Natriuretic Peptide 4652 pg/mL (<100)
[2021-06-01 07:11] LABS: Anion Gap 21 (12-20); Blood Urea Nitrogen 50 mg/dL (9-16); Calcium 9.7 mg/dL (8.4-10.2); Carbon Dioxide 25 mmol/L (22-29); Chloride 94 mmol/L (96-108); Creatinine Clr Calc Pharmacy 47.8; Estimated Glomerular Filt Rate 44; Glucose Random 123 mg/dL (60-115); Potassium 4.4 mmol/L (3.3-5.1); Sodium 136 mmol/L (135-145)
[2021-06-01] MEDS: Albuterol/Iprat 2.5/0.5MG 3 ML AMPUL.NEB INHALE ×2 (07:17→14:59)
--- NOTE | 2021-06-01 09:12 | P.CDIC_ITS ---
CDI Concurrent Query Service Date: 06/01/21 Documentation Clarification: Please clarify if you are treating a proba ble/suspected/likely or confirmed: Specifics: Acute diastolic and/or systolic Congestive heart failure Chronic diastolic and/or systolic Congestive heart failure Acute on chronic diastolic and/or systolic Congestive heart failure Other Unable to determine Provider Response: Other Other Diagnosis: acute/chronic systolic HF PLEASE DO NOT DELETE/MODIFY EXISTING CONTENT Additional information is needed in order to code to the highest accuracy and appropriate Severity of Illness (SOI). Please clarify the information noted below in your progress notes and discharge summary. Risk Factors/Clinical Indicators/Treatments Cardiology 05/30 - clinically suspicious for heart failure. BNP 4297 H Echo ordered presumed low EF. IV Furosemide History of CHF CDS: Nadira Gleason CCS, CDIS Contact Number: [phone] Please Review the information above and exercise your independent professional judgment in responding to the query. If you concur, pleas document in the PROGRESS NOTES and DISCHARGE SUMMARY. If you do not agree with the query, please document in the query above. THIS QUERY IS PART OF THE PERMANENT MEDICAL RECORD
[2021-06-01] MEDS: Spironolactone 25 MG TABLET 12.5 MG PO (09:59)
[2021-06-01] MEDS: Sertraline HCL 25 MG TABLET 125 MG PO (09:59)
[2021-06-01] MEDS: Docusate Sodium 100 MG CAPSULE PO (10:01)
[2021-06-01] MEDS: Sacubitril/Valsartan 24/26 1 TAB TABLET PO (10:02)
[2021-06-01] MEDS: Sennosides 8.6 MG TABLET PO (10:02)
[2021-06-01] MEDS: Melatonin 3 MG TABLET 6 MG PO (10:03)
[2021-06-01] MEDS: Ezetimibe 10 MG TABLET PO (10:04)
[2021-06-01] MEDS: Ferrous Sulfate 324 MG TABLET.DR PO (10:04)
[2021-06-01] MEDS: Digoxin 0.125 MG TABLET PO (10:04)
[2021-06-01] MEDS: clonazePAM 0.5 MG TABLET PO ×2 (10:05→17:51)
[2021-06-01] MEDS: methylPREDNISolone Sod Succ 40 MG/ML VIAL IVPUSH (10:05)
--- NOTE | 2021-06-01 12:47 | HO.PM.IMPN ---
Subjective Subjective Date of Service: 06/01/21 Interval History: Dyspnea improving O2 requirement down to 3L No chest pain No edema Coughed up john-sized amount of dark blood mixed with sputum x1; none since Review of Systems Review of Systems: Yes all other systems are reviewed and are negative Physical Exam Vital Signs: Vital Signs: Last Vital Signs Temp 96.8 F 06/01/21 11:26 Pulse 62 06/01/21 11:26 Resp 18 06/01/21 11:26 BP 113/77 06/01/21 11:26 Pulse Ox 97 06/01/21 11:26 Body Mass Index 23.8 Gen: in no acute distress HEENT: sclera anicteric, moist mucus membranes Neck: supple Lungs: clear to auscultation bilaterally Heart: regular rate and rhythm, no murmurs Abd: soft, non-tender, non-distended Ext: trace LE edema Skin: warm/well-perfused Neuro: alert and oriented x3, no focal findings Psych: appropriate affect Objective Data Current Medications Generic Name Dose Route Start Last Admin Trade Name Laloq PRN Reason Stop Dose Admin Acetaminophen 650 mg 05/30/21 15:21 Acetaminophen 325 Mg Tablet PO Q6H PRN Pain, Mild (Pain Scale 1-3) Acetaminophen 650 mg 05/31/21 10:00 06/01/21 12:23 Acetaminophen 325 Mg Tablet PO 650 mg Q6H [facility] Administration Albuterol Sulfate 2.5 mg 05/30/21 18:27 Albuterol Sulfate (0.083%) 2.5 Mg/3 Ml Vial.Neb INHALE RQ4H PRN Wheezing Albuterol Sulfate 2 puff 05/31/21 09:37 Albuterol Sulfate 90 Mcg 8 Gm Inhaler INHALE QID PRN Wheezing Albuterol/Ipratropium 3 ml 05/30/21 20:00 06/01/21 07:17 Albuterol/Iprat 2.5/0.5mg 3 Ml Ampul.Neb INHALE 3 ml RQ6H WHILE AWAKE [facility] Administration Apixaban 5 mg 05/31/21 09:45 05/31/21 10:43 Apixaban 5 Mg Tablet PO Not Given BID [facility] Aspirin 81 mg 05/31/21 09:45 05/31/21 10:43 Aspirin Enteric Coated 81 Mg Tablet. PO Not Given DAILY [facility] Clonazepam 0.5 mg 05/31/21 17:00 06/01/21 10:05 Clonazepam 0.5 Mg Tablet PO 0.5 mg BID@0900,1700 [facility] Administration Digoxin 0.125 mg 05/31/21 09:45 06/01/21 10:04 Digoxin 0.125 Mg Tablet PO 0.125 mg DAILY [facility] Administration Docusate Sodium 100 mg 06/01/21 09:00 06/01/21 10:01 Docusate Sodium 100 Mg Capsule PO 100 mg DAILY [facility] Administration Ezetimibe 10 mg 05/31/21 09:45 06/01/21 10:04 Ezetimibe 10 Mg Tablet PO 10 mg DAILY [facility] Administration Ferrous Sulfate 324 mg 05/31/21 09:45 06/01/21 10:04 Ferrous Sulfate 324 Mg Tablet. PO 324 mg DAILY [facility] Administration Hydromorphone HCl 0.5 mg 06/01/21 09:39 06/01/21 10:16 Hydromorphone Hcl 0.5 Mg/0.5 Ml Syringe IVPUSH 0.5 mg Q2H PRN Administration Breakthrough Pain Protocol Bumetanide 25 mg/ IV 100 mls @ 2 mls/hr 05/31/21 11:00 05/31/21 12:22 Miscellaneous Supplies IVCONT 0.5 mg/hr .Q24H [facility] 2 mls/hr Administration 0.5 MG/HR Melatonin 6 mg 06/01/21 09:00 06/01/21 10:03 Melatonin 3 Mg Tablet PO 6 mg DAILY [facility] Administration Methylprednisolone Sodium Succinate 40 mg 05/31/21 09:00 06/01/21 10:05 Methylprednisolone Sod Succ 40 Mg/Ml Vial IVPUSH 40 mg DAILY [facility] Administration Metoprolol Succinate 25 mg 05/31/21 09:45 05/31/21 20:56 Metoprolol Succinate Er 25 Mg Tab.Er.24h PO 25 mg BEDTIME [facility] Administration Protocol Mirtazapine 45 mg 05/31/21 21:00 05/31/21 20:57 Mirtazapine 15 Mg Tablet PO 45 mg BEDTIME [facility] Administration Olanzapine 20 mg 05/31/21 21:00 05/31/21 20:56 Olanzapine 10 Mg Tablet PO 20 mg BEDTIME [facility] Administration Ondansetron HCl 4 mg 05/30/21 15:21 Ondansetron Hcl 4 Mg/2 Ml Vial IVPUSH Q8H PRN Nausea and Vomiting Pharmacy Consult 1 each 05/30/21 15:21 Consult Rx Perform Med Rec MISCELLANE ONCE PRN Consult order Sacubitril/Valsartan 1 tab 06/01/21 09:00 06/01/21 10:02 Sacubitril/Valsartan 1 Tab Tablet PO 1 tab DAILY [facility] Administration Protocol Senna 8.6 mg 06/01/21 09:00 06/01/21 10:02 Sennosides 8.6 Mg Tablet PO 8.6 mg DAILY [facility] Administration Sertraline HCl 125 mg 06/01/21 09:00 06/01/21 09:59 Sertraline Hcl 25 Mg Tablet PO 125 mg DAILY [facility] Administration Sodium Chloride 3 ml 05/30/21 16:00 06/01/21 09:58 0.9 % Sodium Chloride Flush 3 Ml Syringe IVFLUSH Not Given QSHIFT [facility] Spironolactone 12.5 mg 06/01/21 09:00 06/01/21 09:59 Spironolactone 25 Mg Tablet PO 12.5 mg DAILY [facility] Administration Protocol Labs CBC & Chem 7: 06/01/21 06:15 06/01/21 06:15 Labs: Laboratory Results - last 24 hr 06/01/21 06/01/21 06/01/21 06:15 06:15 06:15 MCV 91.7 MCH 29.9 MCHC 32.6 RDW 17.9 H Plt Count 138 L MPV 12.0 Absolute Nucleated RBC 0.000 Nucleated RBC % (auto) 0.0 Anion Gap 21 H Estim Creat Clear Calc 47.8 Estimated GFR 44 Random Glucose 123 H Calcium 9.7 B-Natriuretic Peptide 4652 H Microbiology Microbiology Results: Microbiology 05/30/21 04:23 Blood Culture - Preliminary Blood - Venous No growth after 48 hours. 05/30/21 04:23 Blood Culture - Preliminary Blood - Venous No growth after 48 hours. Assessment and Plan (1) Acute on chronic respiratory failure with hypoxia: Status: Acute (2) Ischemic cardiomyopathy: Status: Acute (3) CHF exacerbation: Status: Acute Assessment and Plan: hospital d#3 65yo M with CAD, severe ischemic cardiomyopathy with chronic HFrEF, COPD admitted with lethargy/dyspnea/hypoxia # acute/chronic hypoxic resp failure - wean O2 as tolerated, on 2L at home # CHF exacerbation, acute/chronic HFrEF [10-15% 8/31/21 with large WMA in LAD territory] - continue bumetanide gtt, -780mL thus far (accurate?), monitor I+O/BNP/BMP/Mg/weight - Cardiology following - continue Entresto, metoprolol, spironolactone - held ASA + apixaban - check digoxin level # hemoptysis, minor - Pulmonology consulted, hold ASA + apixaban # COPD exacerbation - continue steroids, standing/prn nebs # mood disorder - continue olanzapine + mirtazapine + sertraline + clonazepam # VTE ppx - SCDs, hold AC due to hemoptysis Quality Stroke Does the patient have a stroke diagnosis?: No VTE Prior VTE?: No VTE Risk Level:: Medical - moderate - high VTE Device Contraindication: Treatment Not Indicated VTE Drug Contraindication: N/A - Med Ordered
[2021-06-01] MEDS: 0.9 % Sodium Chloride Flush 3 ML SYRINGE IVFLUSH (17:51)
[2021-06-01] MEDS: Mirtazapine 15 MG TABLET 45 MG PO (20:04)
[2021-06-01] MEDS: Metoprolol Succinate ER 25 MG TAB.ER.24H PO (20:05)
[2021-06-01] MEDS: OLANZapine 10 MG TABLET 20 MG PO (20:05)
[2021-06-02] VITALS (16 sets, daily range): BP systolic 107–127; BP diastolic 66–71; PULSE 57–93; RESP 16–20; TEMP 36.1–37; O2SAT 94–97
[2021-06-02] MEDS: Bumetanide 25 MG in Container,Empty 0 ML IVCONT (00:43)
[2021-06-02] MEDS: HYDROmorphone HCl 0.5 MG/0.5 ML SYRINGE IVPUSH ×7 (00:43→22:22)
[2021-06-02 06:49] LABS: Anion Gap 17 (12-20); Blood Urea Nitrogen 63 mg/dL (9-16); Calcium 9.7 mg/dL (8.4-10.2); Carbon Dioxide 24 mmol/L (22-29); Chloride 102 mmol/L (96-108); Creatinine Clr Calc Pharmacy 43.9; Estimated Glomerular Filt Rate 40; Glucose Random 98 mg/dL (60-115); Magnesium 2.6 mg/dL (1.6-2.6); Potassium 4.4 mmol/L (3.3-5.1); Sodium 139 mmol/L (135-145)
[2021-06-02 07:07] LABS: Digoxin 0.7 ng/mL (0.8-2.0)
[2021-06-02 07:32] LABS: B Type Natriuretic Peptide 7050 pg/mL (<100)
[2021-06-02] MEDS: Albuterol/Iprat 2.5/0.5MG 3 ML AMPUL.NEB INHALE ×3 (07:42→19:45)
[2021-06-02] MEDS: clonazePAM 0.5 MG TABLET PO ×2 (09:23→16:06)
[2021-06-02] MEDS: Sertraline HCL 25 MG TABLET 125 MG PO (09:23)
[2021-06-02] MEDS: Docusate Sodium 100 MG CAPSULE PO (09:23)
[2021-06-02] MEDS: Sacubitril/Valsartan 24/26 1 TAB TABLET PO (09:23)
[2021-06-02] MEDS: Sennosides 8.6 MG TABLET PO (09:23)
[2021-06-02] MEDS: Spironolactone 25 MG TABLET 12.5 MG PO (09:23)
[2021-06-02] MEDS: Ezetimibe 10 MG TABLET PO (09:23)
[2021-06-02] MEDS: Acetaminophen 325 MG TABLET 650 MG PO ×3 (09:24→22:10)
[2021-06-02] MEDS: Digoxin 0.125 MG TABLET PO (09:24)
[2021-06-02] MEDS: methylPREDNISolone Sod Succ 40 MG/ML VIAL IVPUSH (09:24)
[2021-06-02] MEDS: Ferrous Sulfate 324 MG TABLET.DR PO (09:24)
--- NOTE | 2021-06-02 10:27 | P.PNCA_ITS ---
Subjective Subjective Date of Service: 06/02/21 Principal diagnosis: Shortness of breath, respiratory failure Interval history: Patient still having darkish phlegm production which appears to be coffee-ground with cough. Shortness of breath still present and says he feels weak in his lungs. His BNP is significantly elevated today with mild worsening of his creatinine. He is overall negative balance recorded in the chart is about 1.1 L, currently on IV Bumex drip. He says he has been going to the bathroom. Denies any chest pain. No lightheadedness, syncope. Review of Systems Constitutional: Denies chills, Reports fatigue and Denies fever(s) Cardiovascular: Denies chest pain at rest, Denies syncope, Denies leg edema, Denies palpitations and Reports dyspnea Respiratory: Reports cough, Reports hemoptysis and Reports dyspnea Gastrointestinal: Reports no additional gastrointestinal complaints Musculoskeletal: Reports no additional musculoskeletal complaints Skin/Breast: Reports system reviewed and no additional complaints, except as docu Reports system reviewed and no additional complaints, except as documented and Denies syncope Psychiatric: Reports no additional psychiatric complaints Endocrine: Reports fatigue and Denies palpitations Physical Exam Vital Signs: Last Vital Signs Temp 98 F 06/02/21 07:00 Pulse 64 06/02/21 09:24 Resp 18 06/02/21 09:22 BP 107/68 06/02/21 09:23 Pulse Ox 96 06/02/21 07:00 Body Mass Index 23.8 Const General: cooperative, comfortable, no acute distress, alert, awake and ill appearing Nutritional Appearance: average body habitus Orientation/consciousness: patient oriented x3 Neck Neck: Yes trachea midline and Yes supple Resp Effort & Inspection: normal respiratory effort Auscultation: clear to auscultation bilaterally Cardio Jugular venous distension: no JVD Palpation: abnormal PMI displaced PMI Rate: regular rate Rhythm: regular rhythm Heart sounds: S1 normal heart sound present, S2 normal heart sound present, no click, no gallops and no murmurs GI Auscultation: normal bowel sounds Skin General skin exam: no rashes or lesions noted Neuro General: patient oriented x3 and no focal motor deficits Extrem General: Yes no clubbing, cyanosis or edema Results Labs and Meds Result diagrams: 06/01/21 06:15 06/02/21 06:03 Lab results: Laboratory Results - last 24 hr 0906/02/21 06/02/21 06:03 06:03 06:03 Sodium 139 Potassium 4.4 Chloride 102 Carbon Dioxide 24 Anion Gap 17 BUN 63 H Creatinine 1.73 H Estim Creat Clear Calc 43.9 Estimated GFR 40 Random Glucose 98 Calcium 9.7 Magnesium 2.6 B-Natriuretic Peptide 7050 H Digoxin 0.7 L Progress Note: A&P Assessment and plan (1) CHF exacerbation: Status: Acute Assessment and Plan: Patient present with acute respiratory failure with hypoxemia with findings consistent with diffuse pulmonary/alveolar infiltrate consistent with pulmonary edema. His BNP was significantly elevated and has only had tepid response to IV diuretics with overall negative balance of only 1.1 L, however clinically hypoxemia is improved and in lung findings have improved. However BNP has incr eased and creatinine is worsened. Clinically does not appear to be markedly fluid overloaded. Clinical picture is overall confusing. I think he needs further treatment with help of hemodynamic monitoring. Discussed with patient with, to be transferred for advanced heart failure care to [facility] including right heart catheterization and further optimization of his heart failure medications. However he is currently not interested in going to [facility]. I would want a better intake and output chart measurement. Will follow his urine output over the next few hours. If his urine output is significant will add metolazone to his regimen. Meanwhile continue Entresto and metoprolol therapy. Continue Aldactone therapy. Overall prognosis is guarded. Limitations of resources at this hospital was were discussed with patient in details. (2) Ischemic cardiomyopathy: Status: Acute Assessment and Plan: Severe ischemic cardiomyopathy. Management as above. Continue neurohormonal modulation with Entresto and metoprolol. Also continue Aldactone therapy. Will follow with the patient Fall Risk Details Current Medications: Current Medications Generic Name Dose Route Start Last Admin Trade Name Freq PRN Reason Stop Dose Admin Acetaminophen 650 mg 05/30/21 15:21 Acetaminophen 325 Mg Tablet PO Q6H PRN Pain, Mild (Pain Scale 1-3) Acetaminophen 650 mg 05/31/21 10:00 06/02/21 09:24 Acetaminophen 325 Mg Tablet PO 650 mg Q6H [facility]EXTER Administration Albuterol Sulfate 2.5 mg 05/30/21 18:27 Albuterol Sulfate (0.083%) 2.5 Mg/3 Ml Vial.Neb INHALE RQ4H PRN Wheezing Albuterol Sulfate 2 puff 05/31/21 09:37 Albuterol Sulfate 90 Mcg 8 Gm Inhaler INHALE QID PRN Wheezing Albuterol/Ipratropium 3 ml 05/30/21 20:00 06/02/21 07:42 Albuterol/Iprat 2.5/0.5mg 3 Ml Ampul.Neb INHALE 3 ml RQ6H WHILE AWAKE [facility] Administration Apixaban 5 mg 05/31/21 09:45 05/31/21 10:43 Apixaban 5 Mg Tablet PO Not Given BID [facility] Aspirin 81 mg 05/31/21 09:45 05/31/21 10:43 Aspirin Enteric Coated 81 Mg Tablet. PO Not Given DAILY [facility] Clonazepam 0.5 mg 05/31/21 17:00 06/02/21 09:23 Clonazepam 0.5 Mg Tablet PO 0.5 mg BID@0900,1700 [facility] Administration Digoxin 0.125 mg 05/31/21 09:45 06/02/21 09:24 Digoxin 0.125 Mg Tablet PO 0.125 mg DAILY [facility] Administration Docusate Sodium 100 mg 06/01/21 09:00 06/02/21 09:23 Docusate Sodium 100 Mg Capsule PO 100 mg DAILY [facility] Administration Ezetimibe 10 mg 05/31/21 09:45 06/02/21 09:23 Ezetimibe 10 Mg Tablet PO 10 mg DAILY [facility] Administration Ferrous Sulfate 324 mg 05/31/21 09:45 06/02/21 09:24 Ferrous Sulfate 324 Mg Tablet. PO 324 mg DAILY [facility] Administration Hydromorphone HCl 0.5 mg 06/01/21 09:39 06/02/21 09:22 Hydromorphone Hcl 0.5 Mg/0.5 Ml Syringe IVPUSH 0.5 mg Q2H PRN Administration Breakthrough Pain Protocol Bumetanide 25 mg/ IV 100 mls @ 2 mls/hr 05/31/21 11:00 06/02/21 00:43 Miscellaneous Supplies IVCONT 0.5 mg/hr .Q24H [facility] 2 mls/hr Administration 0.5 MG/HR Melatonin 6 mg 06/01/21 09:00 06/01/21 10:03 Melatonin 3 Mg Tablet PO 6 mg DAILY [facility] Administration Methylprednisolone Sodium Succinate 40 mg 05/31/21 09:00 06/02/21 09:24 Methylprednisolone Sod Succ 40 Mg/Ml Vial IVPUSH 40 mg DAILY [facility] Administration Metoprolol Succinate 25 mg 05/31/21 09:45 06/01/21 20:05 Metoprolol Succinate Er 25 Mg Tab.Er.24h PO 25 mg BEDTIME [facility] Administration Protocol Mirtazapine 45 mg 05/31/21 21:00 06/01/21 20:04 Mirtazapine 15 Mg Tablet PO 45 mg BEDTIME [facility] Administration Olanzapine 20 mg 05/31/21 21:00 06/01/21 20:05 Olanzapine 10 Mg Tablet PO 20 mg BEDTIME [facility] Administration Ondansetron HCl 4 mg 05/30/21 15:21 Ondansetron Hcl 4 Mg/2 Ml Vial IVPUSH Q8H PRN Nausea and Vomiting Pharmacy Consult 1 each 05/30/21 15:21 Consult Rx Perform Med Rec MISCELLANE ONCE PRN Consult order Sacubitril/Valsartan 1 tab 06/01/21 09:00 06/02/21 09:23 Sacubitril/Valsartan 1 Tab Tablet PO 1 tab DAILY [facility] Administration Protocol Senna 8.6 mg 06/01/21 09:00 06/02/21 09:23 Sennosides 8.6 Mg Tablet PO 8.6 mg DAILY [facility] Administration Sertraline HCl 125 mg 06/01/21 09:00 06/02/21 09:23 Sertraline Hcl 25 Mg Tablet PO 125 mg DAILY [facility] Administration Sodium Chloride 3 ml 05/30/21 16:00 06/02/21 09:12 0.9 % Sodium Chloride Flush 3 Ml Syringe IVFLUSH Not Given QSHIFT [facility] Spironolactone 12.5 mg 06/01/21 09:00 06/02/21 09:23 Spironolactone 25 Mg Tablet PO 12.5 mg DAILY [facility] Administration Protocol Time Spent With Patient Time: Total time spent is greater than 50% in coordination of care (as documented) at patient's floor/unit and/or counseling patient: Time with patient: 25 - 35 minutes Progress Note: Quality Stroke Does the patient have a stroke diagnosis?: No Procedures Date of Service Date of Service: 06/02/21
--- NOTE | 2021-06-02 12:05 | HO.PM.IMPN ---
Subjective Subjective Date of Service: 06/02/21 Interval History: Still dyspneic and coughed up a little dark blood this morning No chest pain Review of Systems Review of Systems: Yes all other systems are reviewed and are negative Physical Exam Vital Signs: Vital Signs: Last Vital Signs Temp 97 F 06/02/21 10:50 Pulse 80 06/02/21 10:50 Resp 18 06/02/21 11:58 BP 108/71 06/02/21 10:50 Pulse Ox 94 06/02/21 11:09 Body Mass Index 23.8 Objective Data Active Medications Acetaminophen (Acetaminophen 325 Mg Tablet) 650 mg PO Q6H PRN PRN Reason: Pain, Mild (Pain Scale 1-3) Acetaminophen (Acetaminophen 325 Mg Tablet) 650 mg PO Q6H [facility] Last Admin: 06/02/21 09:24 Dose: 650 mg Documented by: ABIMBOLA Albuterol Sulfate (Albuterol Sulfate (0.083%) 2.5 Mg/3 Ml Vial.Neb) 2.5 mg INHALE RQ4H PRN PRN Reason: Wheezing Albuterol Sulfate (Albuterol Sulfate 90 Mcg 8 Gm Inhaler) 2 puff INHALE QID PRN PRN Reason: Wheezing Albuterol/Ipratropium (Albuterol/Iprat 2.5/0.5mg 3 Ml Ampul.Neb) 3 ml INHALE RQ6H WHILE AWAKE [facility] Last Admin: 06/02/21 07:42 Dose: 3 ml Documented by: UMAIR Apixaban (Apixaban 5 Mg Tablet) 5 mg PO BID [facility] Last Admin: 05/31/21 10:43 Dose: Not Given Documented by: YUMIKO Non-Admin Reason: hold Aspirin (Aspirin Enteric Coated 81 Mg Tablet.) 81 mg PO DAILY [facility] Last Admin: 05/31/21 10:43 Dose: Not Given Documented by: YUMIKO Non-Admin Reason: hold Clonazepam (Clonazepam 0.5 Mg Tablet) 0.5 mg PO BID@0900,1700 [facility] Last Admin: 06/02/21 09:23 Dose: 0.5 mg Documented by: ABIMBOLA Digoxin (Digoxin 0.125 Mg Tablet) 0.125 mg PO DAILY [facility] Last Admin: 06/02/21 09:24 Dose: 0.125 mg Documented by: ABIMBOLA Docusate Sodium (Docusate Sodium 100 Mg Capsule) 100 mg PO DAILY [facility] Last Admin: 06/02/21 09:23 Dose: 100 mg Documented by: ABIMBOLA Ezetimibe (Ezetimibe 10 Mg Tablet) 10 mg PO DAILY [facility] Last Admin: 06/02/21 09:23 Dose: 10 mg Documented by: ABIMBOLA Ferrous Sulfate (Ferrous Sulfate 324 Mg Tablet.Dr) 324 mg PO DAILY [facility] Last Admin: 06/02/21 09:24 Dose: 324 mg Documented by: ABIMBOLA Hydromorphone HCl (Hydromorphone Hcl 0.5 Mg/0.5 Ml Syringe) 0.5 mg IVPUSH Q2H PRN; Protocol PRN Reason: Breakthrough Pain Last Admin: 06/02/21 11:58 Dose: 0.5 mg Documented by: ABIMBOLA Bumetanide 25 mg/ IV (Miscellaneous Supplies) 100 mls @ 2 mls/hr IVCONT .Q24H [facility] Last Admin: 06/02/21 11:35 Dose: Not Given Documented by: ABIMBOLA Non-Admin Reason: IV Running Melatonin (Melatonin 3 Mg Tablet) 6 mg PO BEDTIME [facility] Methylprednisolone Sodium Succinate (Methylprednisolone Sod Succ 40 Mg/Ml Vial) 40 mg IVPUSH DAILY [facility] Last Admin: 06/02/21 09:24 Dose: 40 mg Documented by: ABIMBOLA Metoprolol Succinate (Metoprolol Succinate Er 25 Mg Tab.Er.24h) 25 mg PO BEDTIME [facility]; Protocol Last Admin: 06/01/21 20:05 Dose: 25 mg Documented by: CHENTE Mirtazapine (Mirtazapine 15 Mg Tablet) 45 mg PO BEDTIME [facility] Last Admin: 06/01/21 20:04 Dose: 45 mg Documented by: CHENTE Olanzapine (Olanzapine 10 Mg Tablet) 20 mg PO BEDTIME [facility] Last Admin: 06/01/21 20:05 Dose: 20 mg Documented by: CHENTE Ondansetron HCl (Ondansetron Hcl 4 Mg/2 Ml Vial) 4 mg IVPUSH Q8H PRN PRN Reason: Nausea and Vomiting Pharmacy Consult (Consult Rx Perform Med Rec) 1 each MISCELLANE ONCE PRN PRN Reason: Consult order Sacubitril/Valsartan (Sacubitril/Valsartan 1 Tab Tablet) 1 tab PO DAILY [facility]; Protocol Last Admin: 06/02/21 09:23 Dose: 1 tab Documented by: ABIMBOLA Senna (Sennosides 8.6 Mg Tablet) 8.6 mg PO DAILY [facility] Last Admin: 06/02/21 09:23 Dose: 8.6 mg Documented by: ABIMBOLA Sertraline HCl (Sertraline Hcl 25 Mg Tablet) 125 mg PO DAILY [facility] Last Admin: 06/02/21 09:23 Dose: 125 mg Documented by: ABIMBOLA Sodium Chloride (0.9 % Sodium Chloride Flush 3 Ml Syringe) 3 ml IVFLUSH QSHIFT [facility] Last Admin: 06/02/21 09:12 Dose: Not Given Documented by: ABIMBOLA Non-Admin Reason: IV Running Spironolactone (Spironolactone 25 Mg Tablet) 12.5 mg PO DAILY [facility]; Protocol Last Admin: 06/02/21 09:23 Dose: 12.5 mg Documented by: ABIMBOLA Labs CBC & Chem 7: 06/01/21 06:15 06/02/21 06:03 Labs: Laboratory Results - last 24 hr 06/02/21 06/02/21 06/02/21 06:03 06:03 06:03 Anion Gap 17 Estim Creat Clear Calc 43.9 Estimated GFR 40 Random Glucose 98 Calcium 9.7 Magnesium 2.6 B-Natriuretic Peptide 7050 H Digoxin 0.7 L Assessment and Plan (1) Acute on chronic respiratory failure with hypoxia: Status: Acute (2) Ischemic cardiomyopathy: Status: Acute (3) CHF exacerbation: Status: Acute Assessment and Plan: hospital d#4 65yo M with CAD, severe ischemic cardiomyopathy with chronic HFrEF, COPD admitted with lethargy/dyspnea/hypoxia # acute/chronic hypoxic resp failure - wean O2 as tolerated, on 2L at home, currently on 3L # CHF exacerbation, acute/chronic biventricular HFrEF [10-15% 05/31/21 with large WMA in LAD territory, severely elevated right ventricular systolic pressure] ? ? ? - Cardiology following; recommend [place] [facility] but pt would like to wait for now - continue bumetanide gtt, -1140mL thus far (accurate?), monitor I+O/BNP/BMP/Mg/weight; consider metolazone if not responding well - continue Entresto, metoprolol, spironolactone, digoxin - held ASA + apixaban # hemoptysis, minor - Pulmonology consulted, likely due to CHF continue to hold ASA + apixaban # COPD exacerbation - continue steroids- 40 mg methylprednisolone daily, standing/prn nebs # mood disorder - continue olanzapine + mirtazapine + sertraline + clonazepam # VTE ppx - SCDs, hold AC due to hemoptysis Quality Stroke Does the patient have a stroke diagnosis?: No VTE Prior VTE?: No VTE Risk Level:: Medical - moderate - high VTE Device Contraindication: Treatment Not Indicated VTE Drug Contraindication: N/A - Med Ordered
[2021-06-02] MEDS: Melatonin 3 MG TABLET 6 MG PO (22:10)
[2021-06-02] MEDS: Mirtazapine 15 MG TABLET 45 MG PO (22:10)
[2021-06-02] MEDS: OLANZapine 10 MG TABLET 20 MG PO (22:10)
[2021-06-03] VITALS (17 sets, daily range): BP systolic 95–120; BP diastolic 58–83; PULSE 67–105; RESP 18–19; TEMP 36.2–36.8; O2SAT 93–98
[2021-06-03] MEDS: HYDROmorphone HCl 0.5 MG/0.5 ML SYRINGE IVPUSH ×4 (05:48→19:01)
[2021-06-03 07:12] LABS: B Type Natriuretic Peptide 4082 pg/mL (<100)
[2021-06-03] MEDS: Albuterol/Iprat 2.5/0.5MG 3 ML AMPUL.NEB INHALE ×3 (07:49→20:06)
[2021-06-03] MEDS: Bumetanide 25 MG in Container,Empty 0 ML IVCONT (08:13)
[2021-06-03] MEDS: Spironolactone 25 MG TABLET 12.5 MG PO (08:14)
[2021-06-03] MEDS: methylPREDNISolone Sod Succ 40 MG/ML VIAL IVPUSH (08:14)
[2021-06-03] MEDS: clonazePAM 0.5 MG TABLET PO ×2 (08:16→16:47)
[2021-06-03] MEDS: Sennosides 8.6 MG TABLET PO (08:16)
[2021-06-03] MEDS: Digoxin 0.125 MG TABLET PO (08:16)
[2021-06-03] MEDS: Ferrous Sulfate 324 MG TABLET.DR PO (08:16)
[2021-06-03] MEDS: Sertraline HCL 25 MG TABLET 125 MG PO (08:16)
[2021-06-03 08:17] LABS: Anion Gap 20 (12-20); Blood Urea Nitrogen 61 mg/dL (9-16); Carbon Dioxide 28 mmol/L (22-29); Chloride 98 mmol/L (96-108); Creatinine Clr Calc Pharmacy 48.1; Estimated Glomerular Filt Rate 44; Glucose Random 95 mg/dL (60-115); Magnesium 2.5 mg/dL (1.6-2.6); Potassium 4.1 mmol/L (3.3-5.1); Sodium 142 mmol/L (135-145)
[2021-06-03] MEDS: Ezetimibe 10 MG TABLET PO (08:17)
[2021-06-03] MEDS: Docusate Sodium 100 MG CAPSULE PO (08:17)
[2021-06-03] MEDS: Sacubitril/Valsartan 24/26 1 TAB TABLET PO (08:17)
[2021-06-03] MEDS: Acetaminophen 325 MG TABLET 650 MG PO ×2 (09:25→16:47)
--- NOTE | 2021-06-03 12:21 | P.PNIM_ITS ---
Subjective Subjective Date of Service: 06/03/21 Interval History: dyspnea/cough Review of Systems still sob ,cough Physical Exam Vital Signs: Vital Signs: Last Vital Signs Temp 97.1 F 06/03/21 12:00 Pulse 67 06/03/21 12:00 Resp 18 06/03/21 12:00 BP 95/58 L 06/03/21 12:00 Pulse Ox 97 06/03/21 12:00 Body Mass Index 23.8 Neck: supple Lungs: air entry seesms imrpoving , slightly diminished at bases, no rhonchi Heart: regular rate and rhythm, no murmurs Abd: soft, non-tender, non-distended Ext: trace LE edema Skin: warm/well-perfused Neuro: alert and oriented x3, no focal findings Psych: appropriate affect Objective Data Active Medications Acetaminophen (Acetaminophen 325 Mg Tablet) 650 mg PO Q6H PRN PRN Reason: Pain, Mild (Pain Scale 1-3) Acetaminophen (Acetaminophen 325 Mg Tablet) 650 mg PO Q6H [facility] Last Admin: 06/03/21 09:25 Dose: 650 mg Documented by: PARKER Albuterol Sulfate (Albuterol Sulfate (0.083%) 2.5 Mg/3 Ml Vial.Neb) 2.5 mg INHALE RQ4H PRN PRN Reason: Wheezing Albuterol Sulfate (Albuterol Sulfate 90 Mcg 8 Gm Inhaler) 2 puff INHALE QID PRN PRN Reason: Wheezing Albuterol/Ipratropium (Albuterol/Iprat 2.5/0.5mg 3 Ml Ampul.Neb) 3 ml INHALE RQ6H WHILE AWAKE [facility] Last Admin: 06/03/21 07:49 Dose: 3 ml Documented by: MARILYNN Apixaban (Apixaban 5 Mg Tablet) 5 mg PO BID [facility] Last Admin: 05/31/21 10:43 Dose: Not Given Documented by: YUMIKO Non-Admin Reason: hold Aspirin (Aspirin Enteric Coated 81 Mg Tablet.) 81 mg PO DAILY [facility] Last Admin: 05/31/21 10:43 Dose: Not Given Documented by: YUMIKO Non-Admin Reason: hold Clonazepam (Clonazepam 0.5 Mg Tablet) 0.5 mg PO BID@0900,1700 [facility] Last Admin: 06/03/21 08:16 Dose: 0.5 mg Documented by: PARKER Digoxin (Digoxin 0.125 Mg Tablet) 0.125 mg PO DAILY [facility] Last Admin: 06/03/21 08:16 Dose: 0.125 mg Documented by: PARKER Docusate Sodium (Docusate Sodium 100 Mg Capsule) 100 mg PO DAILY [facility] Last Admin: 06/03/21 08:17 Dose: 100 mg Documented by: PARKER Ezetimibe (Ezetimibe 10 Mg Tablet) 10 mg PO DAILY [facility] Last Admin: 06/03/21 08:17 Dose: 10 mg Documented by: PARKER Ferrous Sulfate (Ferrous Sulfate 324 Mg Tablet.) 324 mg PO DAILY [facility] Last Admin: 06/03/21 08:16 Dose: 324 mg Documented by: PARKER Hydromorphone HCl (Hydromorphone Hcl 0.5 Mg/0.5 Ml Syringe) 0.5 mg IVPUSH Q2H PRN; Protocol PRN Reason: Breakthrough Pain Last Admin: 06/03/21 09:27 Dose: 0.5 mg Documented by: PARKER Bumetanide 25 mg/ IV (Miscellaneous Supplies) 100 mls @ 2 mls/hr IVCONT .Q24H [facility] Last Admin: 06/03/21 08:13 Dose: 0.5 mg/hr, 2 mls/hr Documented by: PARKER Melatonin (Melatonin 3 Mg Tablet) 6 mg PO BEDTIME [facility] Last Admin: 06/02/21 22:10 Dose: 6 mg Documented by: EMILY Methylprednisolone Sodium Succinate (Methylprednisolone Sod Succ 40 Mg/Ml Vial) 40 mg IVPUSH DAILY [facility] Last Admin: 06/03/21 08:14 Dose: 40 mg Documented by: PARKER Metoprolol Succinate (Metoprolol Succinate Er 25 Mg Tab.Er.24h) 25 mg PO BEDTIME [facility]; Protocol Last Admin: 06/02/21 22:14 Dose: Not Given Documented by: EMILY Non-Admin Reason: Patient Condition Contraindication Mirtazapine (Mirtazapine 15 Mg Tablet) 45 mg PO BEDTIME [facility] Last Admin: 06/02/21 22:10 Dose: 45 mg Documented by: EMILY Olanzapine (Olanzapine 10 Mg Tablet) 20 mg PO BEDTIME [facility] Last Admin: 06/02/21 22:10 Dose: 20 mg Documented by: EMILY Ondansetron HCl (Ondansetron Hcl 4 Mg/2 Ml Vial) 4 mg IVPUSH Q8H PRN PRN Reason: Nausea and Vomiting Pharmacy Consult (Consult Rx Perform Med Rec) 1 each MISCELLANE ONCE PRN PRN Reason: Consult order Sacubitril/Valsartan (Sacubitril/Valsartan 1 Tab Tablet) 1 tab PO DAILY [facility]; Protocol Last Admin: 06/03/21 08:17 Dose: 1 tab Documented by: PARKER Senna (Sennosides 8.6 Mg Tablet) 8.6 mg PO DAILY [facility] Last Admin: 06/03/21 08:16 Dose: 8.6 mg Documented by: PARKER Sertraline HCl (Sertraline Hcl 25 Mg Tablet) 125 mg PO DAILY [facility] Last Admin: 06/03/21 08:16 Dose: 125 mg Documented by: PARKER Sodium Chloride (0.9 % Sodium Chloride Flush 3 Ml Syringe) 3 ml IVFLUSH QSHIFT [facility] Last Admin: 06/03/21 07:29 Dose: Not Given Documented by: PARKER Non-Admin Reason: IV Running Spironolactone (Spironolactone 25 Mg Tablet) 12.5 mg PO DAILY [facility]; Protocol Last Admin: 06/03/21 08:14 Dose: 12.5 mg Documented by: PARKER Labs CBC & Chem 7: 06/01/21 06:15 06/03/21 06:28 Labs: Laboratory Results - last 24 hr 06/03/21 06/03/21 06:28 06:28 Anion Gap 20 Estim Creat Clear Calc 48.1 Estimated GFR 44 Random Glucose 95 Calcium 10.0 Magnesium 2.5 B-Natriuretic Peptide 4082 H Assessment and Plan (1) Hemoptysis: Status: Acute (2) Pneumonitis: Status: Acute (3) CHF exacerbation: Status: Acute Assessment and Plan: 65yo M with CAD, severe ischemic cardiomyopathy with chronic HFrEF, COPD admitted with lethargy/dyspnea/hypoxia 1.acute/chronic hypoxic resp failure- wean O2 as tolerated, on 2L at home, curre ntly on 3L 2. CHF exacerbation, acute/chronic biventricular HFrEF [10-15% 05/31/21 with large WMA in LAD territory, severely elevated right ventricular systolic pressure] ? ? ? darkish phlegm cough. - continue bumetanide gtt, -1900mL thus far (accurate?), monitor I+O/BNP/BMP/Mg/weight; bnp improving 4000 consider metolazone if not responding well - continue Entresto, metoprolol, spironolactone, digoxin - held ASA + apixaban cxr pending cardiology f/u pending 3. hemoptysis, minor - Pulmonology consulted, likely due to CHF continue to hold ASA + apixaban 4. COPD exacerbation - continue steroids- 40 mg methylprednisolone daily, standing/prn nebs 5. mood disorder - continue olanzapine + mirtazapine + sertraline + clonazepam # VTE ppx - SCDs, hold AC due to hemoptysis Quality Stroke Does the patient have a stroke diagnosis?: No VTE Prior VTE?: No VTE Risk Level:: Medical - moderate - high VTE Device Contraindication: Treatment Not Indicated VTE Drug Contraindication: N/A - Med Ordered
--- NOTE | 2021-06-03 13:49 | PM.PNCARD ---
Subjective Subjective Date of Service: 06/03/21 Principal diagnosis: Shortness of breath, respiratory failure Interval history: Patient says his shortness of breath is better but he complains of diffuse pain here and there. His diuretic response has been very good with 2 L negative balance overnight. His creatinine is improved. His BNP is improved. Hemodynamically stable. Review of Systems Constitutional: Reports no additional constitutional complaints Cardiovascular: Reports dyspnea Respiratory: Reports no additional respiratory complaints and Reports dyspnea Gastrointestinal: Reports no additional gastrointestinal complaints Genitourinary: Reports no additional male genitourinary complaints Musculoskeletal: Reports no additional musculoskeletal complaints Skin/Breast: Reports system reviewed and no additional complaints, except as docu Reports system reviewed and no additional complaints, except as documented Psychiatric: Reports no additional psychiatric complaints Endocrine: Reports no additional endocrine complaints Hematologic/Lymphatic: Reports no additional hematologic/lymphatic complaints Allergic/Immunologic: Reports no additional allergic/immunologic complaints Physical Exam Vital Signs: Last Vital Signs Temp 97.1 F 06/03/21 12:00 Pulse 67 06/03/21 12:00 Resp 18 06/03/21 12:00 BP 95/58 L 06/03/21 12:00 Pulse Ox 97 06/03/21 12:00 Body Mass Index 23.8 Const General: cooperative, comfortable, no acute distress, alert and awake Nutritional Appearance: thin Orientation/consciousness: patient oriented x3 Neck Neck: Yes trachea midline, Yes supple and Yes no JVD Resp Effort & Inspection: normal respiratory effort Auscultation: crackles (Scattered at bases) Cardio Jugular venous distension: no JVD Palpation: abnormal PMI displaced PMI Rate: regular rate Rhythm: regular rhythm Heart sounds: S1 normal heart sound present, S2 normal heart sound present, no click, no gallops and no murmurs GI Auscultation: normal bowel sounds Skin General skin exam: no rashes or lesions noted Neuro General: patient oriented x3 and no focal motor deficits Extrem General: Yes no clubbing, cyanosis or edema Results Labs and Meds Result diagrams: 06/01/21 06:15 06/03/21 06:28 Lab results: Laboratory Results - last 24 hr 06/03/21 06/03/21 06:28 06:28 Sodium 142 Potassium 4.1 Chloride 98 Carbon Dioxide 28 Anion Gap 20 BUN 61 H Creatinine 1.58 H Estim Creat Clear Calc 48.1 Estimated GFR 44 Random Glucose 95 Calcium 10.0 Magnesium 2.5 B-Natriuretic Peptide 4082 H Progress Note: A&P Assessment and plan (1) CHF exacerbation: Status: Acute Assessment and Plan: Congestive heart failure which is improving with more aggressive diuresis. Continue IV Bumex drip for 1 more day. Strict intake and output chart. Continue neurohormonal modulation with Entresto, Aldactone and metoprolol. Continue to follow BMP. Repeat chest x-ray to evaluate for LV lower infiltrates. Out of bed to chair. Ambulate as tolerated. He is on chronic oxygen at home at 3 liters/minute. He is currently on his baseline oxygen dose. If clinically doing well tomorrow may switch to p.o. Bumex. Cannot maximize his Entresto due to lower blood pressure. Consider resuming Eliquis if okay with Pulmonary if his hemoptysis has resolved. Hold off on antiplatelet if anticoagulant has been started. Continue high-intensity statin therapy. Will follow with the Fall Risk Details Current Medications: Current Medications Generic Name Dose Route Start Last Admin Trade Name Laloq PRN Reason Stop Dose Admin Acetaminophen 650 mg 05/30/21 15:21 Acetaminophen 325 Mg Tablet PO Q6H PRN Pain, Mild (Pain Scale 1-3) Acetaminophen 650 mg 05/31/21 10:00 06/03/21 09:25 Acetaminophen 325 Mg Tablet PO 650 mg Q6H [facility] Administration Albuterol Sulfate 2.5 mg 05/30/21 18:27 Albuterol Sulfate (0.083%) 2.5 Mg/3 Ml Vial.Neb INHALE RQ4H PRN Wheezing Albuterol Sulfate 2 puff 05/31/21 09:37 Albuterol Sulfate 90 Mcg 8 Gm Inhaler INHALE QID PRN Wheezing Albuterol/Ipratropium 3 ml 05/30/21 20:00 06/03/21 07:49 Albuterol/Iprat 2.5/0.5mg 3 Ml Ampul.Neb INHALE 3 ml RQ6H WHILE AWAKE [facility] Administration Apixaban 5 mg 05/31/21 09:45 05/31/21 10:43 Apixaban 5 Mg Tablet PO Not Given BID [facility] Aspirin 81 mg 05/31/21 09:45 05/31/21 10:43 Aspirin Enteric Coated 81 Mg Tablet.Dr PO Not Given DAILY [facility] Clonazepam 0.5 mg 05/31/21 17:00 06/03/21 08:16 Clonazepam 0.5 Mg Tablet PO 0.5 mg BID@0900,1700 [facility] Administration Digoxin 0.125 mg 05/31/21 09:45 06/03/21 08:16 Digoxin 0.125 Mg Tablet PO 0.125 mg DAILY [facility] Administration Docusate Sodium 100 mg 06/01/21 09:00 06/03/21 08:17 Docusate Sodium 100 Mg Capsule PO 100 mg DAILY [facility] Administration Ezetimibe 10 mg 05/31/21 09:45 06/03/21 08:17 Ezetimibe 10 Mg Tablet PO 10 mg DAILY [facility] Administration Ferrous Sulfate 324 mg 05/31/21 09:45 06/03/21 08:16 Ferrous Sulfate 324 Mg Tablet.Dr PO 324 mg DAILY [facility] Administration Hydromorphone HCl 0.5 mg 06/01/21 09:39 06/03/21 09:27 Hydromorphone Hcl 0.5 Mg/0.5 Ml Syringe IVPUSH 0.5 mg Q2H PRN Administration Breakthrough Pain Protocol Bumetanide 25 mg/ IV 100 mls @ 2 mls/hr 06/03/21 08:00 06/03/21 08:13 Miscellaneous Supplies IVCONT 0.5 mg/hr .Q24H [facility] 2 mls/hr Administration 0.5 MG/HR Melatonin 6 mg 06/02/21 21:00 06/02/21 22:10 Melatonin 3 Mg Tablet PO 6 mg BEDTIME [facility] Administration Methylprednisolone Sodium Succinate 40 mg 05/31/21 09:00 06/03/21 08:14 Methylprednisolone Sod Succ 40 Mg/Ml Vial IVPUSH 40 mg DAILY [facility] Administration Metoprolol Succinate 25 mg 05/31/21 09:45 06/02/21 22:14 Metoprolol Succinate Er 25 Mg Tab.Er.24h PO Not Given BEDTIME [facility] Protocol Mirtazapine 45 mg 05/31/21 21:00 06/02/21 22:10 Mirtazapine 15 Mg Tablet PO 45 mg BEDTIME [facility] Administration Olanzapine 20 mg 05/31/21 21:00 06/02/21 22:10 Olanzapine 10 Mg Tablet PO 20 mg BEDTIME [facility] Administration Ondansetron HCl 4 mg 05/30/21 15:21 Ondansetron Hcl 4 Mg/2 Ml Vial IVPUSH Q8H PRN Nausea and Vomiting Pharmacy Consult 1 each 05/30/21 15:21 Consult Rx Perform Med Rec MISCELLANE ONCE PRN Consult order Sacubitril/Valsartan 1 tab 06/01/21 09:00 06/03/21 08:17 Sacubitril/Valsartan 1 Tab Tablet PO 1 tab DAILY [facility] Administration Protocol Senna 8.6 mg 06/01/21 09:00 06/03/21 08:16 Sennosides 8.6 Mg Tablet PO 8.6 mg DAILY [facility] Administration Sertraline HCl 125 mg 06/01/21 09:00 06/03/21 08:16 Sertraline Hcl 25 Mg Tablet PO 125 mg DAILY [facility] Administration Sodium Chloride 3 ml 05/30/21 16:00 06/03/21 07:29 0.9 % Sodium Chloride Flush 3 Ml Syringe IVFLUSH Not Given QSHIFT [facility] Spironolactone 12.5 mg 06/01/21 09:00 06/03/21 08:14 Spironolactone 25 Mg Tablet PO 12.5 mg DAILY [facility] Administration Protocol Time Spent With Patient Time: Total time spent is greater than 50% in coordination of care (as documented) at patient's floor/unit and/or counseling patient: Time with patient: 15 - 24 minutes Progress Note: Quality Stroke Does the patient have a stroke diagnosis?: No Procedures Date of Service Date of Service: 06/03/21
--- NOTE | 2021-06-03 14:21 | MHC.CM.PN ---
PER MD ROUNDS, PT EXPECTED TO DC IN 1-2 DAYS BACK TO [facility].
[2021-06-03] MEDS: HYDROmorphone HCl 0.5 MG/0.5 ML SYRINGE 1 MG IVPUSH (14:42)
[2021-06-03] MEDS: OLANZapine 10 MG TABLET 20 MG PO (20:33)
[2021-06-03] MEDS: Mirtazapine 15 MG TABLET 45 MG PO (20:33)
[2021-06-03] MEDS: Metoprolol Succinate ER 25 MG TAB.ER.24H PO (20:33)
[2021-06-03] MEDS: Melatonin 3 MG TABLET 6 MG PO (20:34)
[2021-06-04] VITALS (10 sets, daily range): BP systolic 92–124; BP diastolic 63–88; PULSE 74–98; RESP 18–19; TEMP 36–36.5; O2SAT 93–99
[2021-06-04] MEDS: Acetaminophen 325 MG TABLET 650 MG PO ×4 (05:11→20:01)
[2021-06-04] MEDS: HYDROmorphone HCl 0.5 MG/0.5 ML SYRINGE IVPUSH ×6 (05:13→22:17)
[2021-06-04 06:55] LABS: Hemoglobin 14.9 g/dl (14.0-18.0); Mean Corpuscular HGB Conc 33.1 g/dl (31.0-36.0); Mean Corpuscular Hemoglobin 29.9 pg (27.0-33.0); Mean Corpuscular Volume 90.2 fL (80-98); Mean Platelet Volume 11.3 fL (9.4-12.4); Platelet Count 217 X10*3/uL (160-400); Red Blood Count 4.99 X10*6/uL (4.60-5.80); Red Cell Distribution Width 17.8 % (11.0-16.0); White Blood Count 9.2 X10*3/uL (4.8-10.8)
[2021-06-04 07:22] LABS: Anion Gap 14 (12-20); Blood Urea Nitrogen 57 mg/dL (9-16); Calcium 9.2 mg/dL (8.4-10.2); Carbon Dioxide 33 mmol/L (22-29); Chloride 100 mmol/L (96-108); Creatinine Clr Calc Pharmacy 58.9; Estimated Glomerular Filt Rate 56; Glucose Random 122 mg/dL (60-115); Potassium 3.7 mmol/L (3.3-5.1); Sodium 143 mmol/L (135-145)
[2021-06-04] MEDS: Albuterol/Iprat 2.5/0.5MG 3 ML AMPUL.NEB INHALE ×3 (07:32→19:33)
[2021-06-04] MEDS: Sertraline HCL 25 MG TABLET 125 MG PO (08:41)
[2021-06-04] MEDS: methylPREDNISolone Sod Succ 40 MG/ML VIAL IVPUSH (08:41)
[2021-06-04] MEDS: Ferrous Sulfate 324 MG TABLET.DR PO (08:42)
[2021-06-04] MEDS: Digoxin 0.125 MG TABLET PO (08:42)
[2021-06-04] MEDS: Docusate Sodium 100 MG CAPSULE PO (08:42)
[2021-06-04] MEDS: Spironolactone 25 MG TABLET 12.5 MG PO (08:42)
[2021-06-04] MEDS: Sennosides 8.6 MG TABLET PO (08:42)
[2021-06-04] MEDS: Ezetimibe 10 MG TABLET PO (08:42)
[2021-06-04] MEDS: clonazePAM 0.5 MG TABLET PO (08:42)
[2021-06-04] MEDS: Bumetanide 25 MG in Container,Empty 0 ML IVCONT (09:40)
--- NOTE | 2021-06-04 10:35 | HO.PM.IMPN ---
Subjective Subjective Date of Service: 06/04/21 Interval History: minimal hemoptysis last night, nothing today Cardiovascular Cardiovascular: Reports no additional cardiovascular complaints Respiratory Respiratory: Reports no additional respiratory complaints Physical Exam Vital Signs: Vital Signs: Last Vital Signs Temp 96.8 F 06/04/21 07:59 Pulse 75 06/04/21 07:59 Resp 18 06/04/21 07:59 BP 97/64 06/04/21 07:59 Pulse Ox 97 06/04/21 07:59 Body Mass Index 23.8 Const General:?cooperative, comfortable, no acute distress, alert and awake Nutritional Appearance:?thin Orientation/consciousness:?patient oriented x3 Neck Neck:?Yes trachea midline, Yes supple and Yes no JVD Resp Effort & Inspection:?normal respiratory effort Auscultation:?crackles (Scattered at bases) Cardio Jugular venous distension:?no JVD Palpation:?abnormal PMI displaced PMI Rate:?regular rate Rhythm:?regular rhythm Heart sounds:?S1 normal heart sound present, S2 normal heart sound present, no click, no gallops and no murmurs GI Auscultation:?normal bowel sounds Skin General skin exam:?no rashes or lesions noted Neuro General:?patient oriented x3 and no focal motor deficits Extrem General:?Yes no clubbing, cyanosis or edema Objective Data Active Medications Acetaminophen (Acetaminophen 325 Mg Tablet) 650 mg PO Q6H PRN PRN Reason: Pain, Mild (Pain Scale 1-3) Acetaminophen (Acetaminophen 325 Mg Tablet) 650 mg PO Q6H [facility] Last Admin: 06/04/21 05:11 Dose: 650 mg Documented by: IRENA Albuterol Sulfate (Albuterol Sulfate (0.083%) 2.5 Mg/3 Ml Vial.Neb) 2.5 mg INHALE RQ4H PRN PRN Reason: Wheezing Albuterol Sulfate (Albuterol Sulfate 90 Mcg 8 Gm Inhaler) 2 puff INHALE QID PRN PRN Reason: Wheezing Albuterol/Ipratropium (Albuterol/Iprat 2.5/0.5mg 3 Ml Ampul.Neb) 3 ml INHALE RQ6H WHILE AWAKE [facility] Last Admin: 06/04/21 07:32 Dose: 3 ml Documented by: MARILYNN Apixaban (Apixaban 5 Mg Tablet) 5 mg PO BID [facility] Last Admin: 05/31/21 10:43 Dose: Not Given Documented by: YUMIKO Non-Admin Reason: hold Aspirin (Aspirin Enteric Coated 81 Mg Tablet.) 81 mg PO DAILY [facility] Last Admin: 05/31/21 10:43 Dose: Not Given Documented by: YUMIKO Non-Admin Reason: md hold Clonazepam (Clonazepam 0.5 Mg Tablet) 0.5 mg PO BID@0900,1700 [facility] Last Admin: 06/04/21 08:42 Dose: 0.5 mg Documented by: TAYLOR Digoxin (Digoxin 0.125 Mg Tablet) 0.125 mg PO DAILY [facility] Last Admin: 06/04/21 08:42 Dose: 0.125 mg Documented by: TAYLOR Docusate Sodium (Docusate Sodium 100 Mg Capsule) 100 mg PO DAILY [facility] Last Admin: 06/04/21 08:42 Dose: 100 mg Documented by: TAYLOR Ezetimibe (Ezetimibe 10 Mg Tablet) 10 mg PO DAILY [facility] Last Admin: 06/04/21 08:42 Dose: 10 mg Documented by: TAYLOR Ferrous Sulfate (Ferrous Sulfate 324 Mg Tablet.) 324 mg PO DAILY [facility] Last Admin: 06/04/21 08:42 Dose: 324 mg Documented by: TAYLOR Hydromorphone HCl (Hydromorphone Hcl 0.5 Mg/0.5 Ml Syringe) 0.5 mg IVPUSH Q2H PRN; Protocol PRN Reason: Breakthrough Pain Last Admin: 06/04/21 08:52 Dose: 0.5 mg Documented by: TAYLOR Bumetanide 25 mg/ IV (Miscellaneous Supplies) 100 mls @ 2 mls/hr IVCONT .Q24H [facility] Last Admin: 06/04/21 09:40 Dose: 0.5 mg/hr, 2 mls/hr Documented by: TAYLOR Melatonin (Melatonin 3 Mg Tablet) 6 mg PO BEDTIME [facility] Last Admin: 06/03/21 20:34 Dose: 6 mg Documented by: IRENA Methylprednisolone Sodium Succinate (Methylprednisolone Sod Succ 40 Mg/Ml Vial) 40 mg IVPUSH DAILY [facility] Last Admin: 06/04/21 08:41 Dose: 40 mg Documented by: TAYLOR Metoprolol Succinate (Metoprolol Succinate Er 25 Mg Tab.Er.24h) 25 mg PO BEDTIME D[facility]TER; Protocol Last Admin: 06/03/21 20:33 Dose: 25 mg Documented by: IRENA Mirtazapine (Mirtazapine 15 Mg Tablet) 45 mg PO BEDTIME [facility] Last Admin: 06/03/21 20:33 Dose: 45 mg Documented by: IRENA Olanzapine (Olanzapine 10 Mg Tablet) 20 mg PO BEDTIME [facility] Last Admin: 06/03/21 20:33 Dose: 20 mg Documented by: IRENA Ondansetron HCl (Ondansetron Hcl 4 Mg/2 Ml Vial) 4 mg IVPUSH Q8H PRN PRN Reason: Nausea and Vomiting Pharmacy Consult (Consult Rx Perform Med Rec) 1 each MISCELLANE ONCE PRN PRN Reason: Consult order Sacubitril/Valsartan (Sacubitril/Valsartan 1 Tab Tablet) 1 tab PO DAILY D[facility]; Protocol Last Admin: 06/04/21 08:41 Dose: Not Given Documented by: TAYLOR Non-Admin Reason: Decreased Blood Pressure Senna (Sennosides 8.6 Mg Tablet) 8.6 mg PO DAILY [facility] Last Admin: 06/04/21 08:42 Dose: 8.6 mg Documented by: TAYLOR Sertraline HCl (Sertraline Hcl 25 Mg Tablet) 125 mg PO DAILY [facility] Last Admin: 06/04/21 08:41 Dose: 125 mg Documented by: TAYLOR Sodium Chloride (0.9 % Sodium Chloride Flush 3 Ml Syringe) 3 ml IVFLUSH QSHIFT [facility] Last Admin: 06/04/21 08:41 Dose: Not Given Documented by: TAYLOR Non-Admin Reason: IV Running Spironolactone (Spironolactone 25 Mg Tablet) 12.5 mg PO DAILY [facility]; Protocol Last Admin: 06/04/21 08:42 Dose: 12.5 mg Documented by: TAYLOR Labs CBC & Chem 7: 06/04/21 06:24 06/04/21 06:24 Labs: Laboratory Results - last 24 hr 06/04/21 06/04/21 06:24 06:24 MCV 90.2 MCH 29.9 MCHC 33.1 RDW 17.8 H Plt Count 217 D MPV 11.3 Absolute Nucleated RBC 0.000 Nucleated RBC % (auto) 0.0 Anion Gap 14 Estim Creat Clear Calc 58.9 Estimated GFR 56 Random Glucose 122 H Calcium 9.2 D Microbiology Microbiology Results: Microbiology 05/30/21 04:23 Blood Culture - Final Blood - Venous No growth after 5 days. 05/30/21 04:23 Blood Culture - Final Blood - Venous No growth after 5 days. Assessment and Plan (1) Hemoptysis: Status: Acute (2) Pneumonitis: Status: Acute (3) CHF exacerbation: Status: Acute Assessment and Plan: 65yo M with CAD, severe ischemic cardiomyopathy with chronic HFrEF, COPD admitted with lethargy/dyspnea/hypoxia acute on chronic hypoxic resp failure secondary to acute on chronic ischemic systolic chf on bumex infusion, recorded -6476mL since admission continue asa, eliwuis, toprol, entresto, aldactone cardio following echo - 10-15% 05/31/21 with large WMA in LAD territory, severely elevated right ventricular systolic pressure COPD with exacerbation solumderol, duonebs minor hemoptysis restarted asa, eliquis, still minimal, monitor mood disorder continue olanzapine + mirtazapine + sertraline + clonazepam Quality Stroke Does the patient have a stroke diagnosis?: No VTE Prior VTE?: No VTE Risk Level:: Medical - moderate - high VTE Device Contraindication: Treatment Not Indicated VTE Drug Contraindication: N/A - Med Ordered
--- NOTE | 2021-06-04 12:17 | P.PNCA_ITS ---
Subjective Subjective Date of Service: 06/04/21 Principal diagnosis: Shortness of breath, respiratory failure Interval history: patient says shortness of breath is much improved. Diuresing very well. Renal function is improved. Blood pressure borderline. No arr hythmias. No palpitations. No orthopnea, PND. Complains of pain diffusely. Review of Systems Review of Systems Yes all other systems are reviewed and are negative Constitutional: Reports no additional constitutional complaints Cardiovascular: Reports no additional cardiovascular complaints Respiratory: Reports no additional respiratory complaints Reports system reviewed and no additional complaints, except as documented Physical Exam Vital Signs: Last Vital Signs Temp 96.8 F 06/04/21 12:00 Pulse 77 06/04/21 12:00 Resp 18 06/04/21 12:00 BP 103/65 06/04/21 12:00 Pulse Ox 94 06/04/21 12:00 Body Mass Index 23.8 Const General: cooperative, comfortable, alert and awake Nutritional Appearance: thin Orientation/consciousness: patient oriented x3 Neck Neck: Yes trachea midline, Yes supple and Yes no JVD Resp Effort & Inspection: normal respiratory effort Auscultation: clear to auscultation bilaterally Cardio Palpation: abnormal PMI displaced PMI Rate: regular rate Rhythm: regular rhythm Heart sounds: S1 normal heart sound present, S2 normal heart sound present, no click, no gallops and no murmurs GI Auscultation: normal bowel sounds Neuro General: patient oriented x3 and no focal motor deficits Extrem General: Yes no clubbing, cyanosis or edema Results Labs and Meds Result diagrams: 06/04/21 06:24 06/04/21 06:24 Lab results: Laboratory Results - last 24 hr 06/04/21 06/04/21 06:24 06:24 WBC 9.2 RBC 4.99 Hgb 14.9 Hct 45.0 MCV 90.2 MCH 29.9 MCHC 33.1 RDW 17.8 H Plt Count 217 D MPV 11.3 Absolute Nucleated RBC 0.000 Nucleated RBC % (auto) 0.0 Sodium 143 Potassium 3.7 Chloride 100 Carbon Dioxide 33 H Anion Gap 14 BUN 57 H Creatinine 1.29 Estim Creat Clear Calc 58.9 Estimated GFR 56 Random Glucose 122 H Calcium 9.2 D Imaging Radiologist's impression: Impressions Chest X-Ray 06/03/21 13:48 IMPRESSION: Improved pulmonary edema. Progress Note: A&P Assessment and plan (1) CHF exacerbation: Status: Acute Assessment and Plan: CHF, acute, has improved significantly with diuresis with over 6 L of negative balance. Creatinine is improved as suspected with improving cardiac output. Continue current neurohormonal modulation with Aldactone, Entresto and metoprolol. Can switch to p.o. Bumex. CHF education was provided. However patient was more focused on pain management. Avoidance of salt loading. Daily weight monitoring and persistent intake and output chart needs to be pursued. Obtain BNP tomorrow for planning of discharge purposes to see if there is greater than 50% reduction in BNP compared to admission BNP. 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 Fall Risk Details Current Medications: Current Medications Generic Name Dose Route Start Last Admin Trade Name Freq PRN Reason Stop Dose Admin Acetaminophen 650 mg 05/30/21 15:21 Acetaminophen 325 Mg Tablet PO Q6H PRN Pain, Mild (Pain Scale 1-3) Acetaminophen 650 mg 05/31/21 10:00 06/04/21 11:20 Acetaminophen 325 Mg Tablet PO 650 mg Q6H [facility] Administration Albuterol Sulfate 2.5 mg 05/30/21 18:27 Albuterol Sulfate (0.083%) 2.5 Mg/3 Ml Vial.Neb INHALE RQ4H PRN Wheezing Albuterol Sulfate 2 puff 05/31/21 09:37 Albuterol Sulfate 90 Mcg 8 Gm Inhaler INHALE QID PRN Wheezing Albuterol/Ipratropium 3 ml 05/30/21 20:00 06/04/21 07:32 Albuterol/Iprat 2.5/0.5mg 3 Ml Ampul.Neb INHALE 3 ml RQ6H WHILE AWAKE [facility] Administration Apixaban 5 mg 05/31/21 09:45 05/31/21 10:43 Apixaban 5 Mg Tablet PO Not Given BID [facility] Aspirin 81 mg 05/31/21 09:45 05/31/21 10:43 Aspirin Enteric Coated 81 Mg Tablet. PO Not Given DAILY [facility] Bumetanide 2 mg 06/04/21 17:00 Bumetanide 1 Mg Tablet PO BID@0800,1700 [facility] Protocol Clonazepam 0.5 mg 05/31/21 17:00 06/04/21 08:42 Clonazepam 0.5 Mg Tablet PO 0.5 mg BID@0900,1700 [facility] Administration Digoxin 0.125 mg 05/31/21 09:45 06/04/21 08:42 Digoxin 0.125 Mg Tablet PO 0.125 mg DAILY [facility] Administration Docusate Sodium 100 mg 06/01/21 09:00 06/04/21 08:42 Docusate Sodium 100 Mg Capsule PO 100 mg DAILY [facility] Administration Ezetimibe 10 mg 05/31/21 09:45 06/04/21 08:42 Ezetimibe 10 Mg Tablet PO 10 mg DAILY [facility] Administration Ferrous Sulfate 324 mg 05/31/21 09:45 06/04/21 08:42 Ferrous Sulfate 324 Mg Tablet. PO 324 mg DAILY [facility] Administration Hydromorphone HCl 0.5 mg 06/01/21 09:39 06/04/21 11:21 Hydromorphone Hcl 0.5 Mg/0.5 Ml Syringe IVPUSH 0.5 mg Q2H PRN Administration Breakthrough Pain Protocol Melatonin 6 mg 06/02/21 21:00 06/03/21 20:34 Melatonin 3 Mg Tablet PO 6 mg BEDTIME [facility] Administration Methylprednisolone Sodium Succinate 40 mg 05/31/21 09:00 06/04/21 08:41 Methylprednisolone Sod Succ 40 Mg/Ml Vial IVPUSH 40 mg DAILY [facility] Administration Metoprolol Succinate 25 mg 05/31/21 09:45 06/03/21 20:33 Metoprolol Succinate Er 25 Mg Tab.Er.24h PO 25 mg BEDTIME [facility] Administration Protocol Mirtazapine 45 mg 05/31/21 21:00 06/03/21 20:33 Mirtazapine 15 Mg Tablet PO 45 mg BEDTIME [facility] Administration Olanzapine 20 mg 05/31/21 21:00 06/03/21 20:33 Olanzapine 10 Mg Tablet PO 20 mg BEDTIME [facility] Administration Ondansetron HCl 4 mg 05/30/21 15:21 Ondansetron Hcl 4 Mg/2 Ml Vial IVPUSH Q8H PRN Nausea and Vomiting Pharmacy Consult 1 each 05/30/21 15:21 Consult Rx Perform Med Rec MISCELLANE ONCE PRN Consult order Sacubitril/Valsartan 1 tab 06/01/21 09:00 06/04/21 08:41 Sacubitril/Valsartan 1 Tab Tablet PO Not Given DAILY [facility] Protocol Senna 8.6 mg 06/01/21 09:00 06/04/21 08:42 Sennosides 8.6 Mg Tablet PO 8.6 mg DAILY [facility] Administration Sertraline HCl 125 mg 06/01/21 09:00 06/04/21 08:41 Sertraline Hcl 25 Mg Tablet PO 125 mg DAILY [facility] Administration Sodium Chloride 3 ml 05/30/21 16:00 06/04/21 08:41 0.9 % Sodium Chloride Flush 3 Ml Syringe IVFLUSH Not Given QSHIFT [facility] Spironolactone 12.5 mg 06/01/21 09:00 06/04/21 08:42 Spironolactone 25 Mg Tablet PO 12.5 mg DAILY [facility] Administration Protocol Time Spent With Patient Time: Total time spent is greater than 50% in coordination of care (as documented) at patient's floor/unit and/or counseling patient: Time with patient: 25 - 35 minutes Progress Note: Quality Stroke Does the patient have a stroke diagnosis?: No Procedures Date of Service Date of Service: 06/04/21
[2021-06-04] MEDS: 0.9 % Sodium Chloride Flush 3 ML SYRINGE IVFLUSH (15:17)
[2021-06-04] MEDS: OLANZapine 10 MG TABLET 20 MG PO (20:01)
[2021-06-04] MEDS: Melatonin 3 MG TABLET 6 MG PO (20:01)
[2021-06-04] MEDS: Mirtazapine 15 MG TABLET 45 MG PO (20:02)
[2021-06-05] MEDS: 0.9 % Sodium Chloride Flush 3 ML SYRINGE IVFLUSH ×2 (00:41→09:10)
[2021-06-05 03:43] VITALS: BP 130/71; PULSE 56; RESP 18; TEMP 36.3; O2SAT 97
[2021-06-05 05:23] VITALS: BP 130/71; PULSE 56
[2021-06-05] MEDS: HYDROmorphone HCl 0.5 MG/0.5 ML SYRINGE IVPUSH ×2 (05:23→09:09)
[2021-06-05] MEDS: Metoprolol Tartrate 25 MG TABLET PO (05:23)
[2021-06-05 06:49] LABS: Hematocrit 42.1 % (42-52); Hemoglobin 14.1 g/dl (14.0-18.0); Mean Corpuscular HGB Conc 33.5 g/dl (31.0-36.0); Mean Corpuscular Hemoglobin 29.6 pg (27.0-33.0); Mean Corpuscular Volume 88.4 fL (80-98); Mean Platelet Volume 10.6 fL (9.4-12.4); Platelet Count 224 X10*3/uL (160-400); Red Blood Count 4.76 X10*6/uL (4.60-5.80); Red Cell Distribution Width 17.5 % (11.0-16.0); White Blood Count 8.5 X10*3/uL (4.8-10.8)
[2021-06-05 07:04] LABS: B Type Natriuretic Peptide 1087 pg/mL (<100)
[2021-06-05 07:05] LABS: Anion Gap 16 (12-20); Blood Urea Nitrogen 60 mg/dL (9-16); Calcium 9.4 mg/dL (8.4-10.2); Carbon Dioxide 30 mmol/L (22-29); Chloride 95 mmol/L (96-108); Creatinine Clr Calc Pharmacy 48.1; Estimated Glomerular Filt Rate 44; Glucose Fasting 82 mg/dL (60-99); Magnesium 2.2 mg/dL (1.6-2.6); Potassium 3.9 mmol/L (3.3-5.1); Sodium 137 mmol/L (135-145)
[2021-06-05 07:46] VITALS: PULSE 68; O2SAT 97
[2021-06-05] MEDS: Albuterol/Iprat 2.5/0.5MG 3 ML AMPUL.NEB INHALE (07:46)
[2021-06-05 08:00] VITALS: BP 112/76; PULSE 85; RESP 18; TEMP 36.3; O2SAT 97
[2021-06-05 09:07] VITALS: BP 112/76; PULSE 85
[2021-06-05] MEDS: Docusate Sodium 100 MG CAPSULE PO (09:07)
[2021-06-05] MEDS: Spironolactone 25 MG TABLET 12.5 MG PO (09:07)
[2021-06-05] MEDS: Sacubitril/Valsartan 24/26 1 TAB TABLET PO (09:08)
[2021-06-05] MEDS: Sertraline HCL 25 MG TABLET 125 MG PO (09:08)
[2021-06-05] MEDS: Acetaminophen 325 MG TABLET 650 MG PO (09:08)
[2021-06-05] MEDS: Ferrous Sulfate 324 MG TABLET.DR PO (09:08)
[2021-06-05] MEDS: Ezetimibe 10 MG TABLET PO (09:08)
[2021-06-05] MEDS: Digoxin 0.125 MG TABLET PO (09:08)
[2021-06-05] MEDS: Sennosides 8.6 MG TABLET PO (09:08)
[2021-06-05] MEDS: Bumetanide 1 MG TABLET 2 MG PO (09:08)
[2021-06-05] MEDS: methylPREDNISolone Sod Succ 40 MG/ML VIAL IVPUSH (09:09)
[2021-06-05] MEDS: clonazePAM 0.5 MG TABLET PO (09:09)
--- NOTE | 2021-06-05 10:58 | PM.DS ---
DS: Providers Provider Date of Service: 06/05/21 Date of admission: 05/30/21 15:17 Primary care physician: Unknown Physician Consults: 05/30/21 15:21 Consult to Cardiology Routine Consulting Provider: Ahmet Chang Reason for consultation: Evaluate for heart failure exacerbation 05/31/21 10:10 Consult to Pulmonology Routine Consulting Provider: Arnaldo Santoyo Reason for consultation: Hypoxic Resp failure, Hemoptysis for your kind eval. DS: Diagnosis Discharge Diagnosis (1) CHF exacerbation: Status: Acute DS: Summary Hospital Course Hospital Course: Patient was admitted for acute on chronic hypoxic respiratory failure secondary to acute on chronic ischemic systolic CHF. He was treated with Bumex infusion and was negative 6.5 L since admission. Echocardiogram showed an EF of 10-15% with a large wall motion abnormality in the LAD territory with severe elevated right ventricular systolic pressure. Patient was also noted to have minor hemoptysis, initially his aspirin and Eliquis were held. It was then restarted and he has not had significant hemoptysis since. At this point risk benefit is in favor of continuing anti coagulation antiplatelet. Patient was switch back to oral Bumex and BNP is significantly decreased from admission and chest x-ray is much improved. Time Spent with Patient Time attestation: Total time spent providing and/or coordinating discharge services: Discharge coordination time: Greater than 30 minutes Quality: Stroke Does the patient have a stroke diagnosis?: No Physical Exam Vital Signs: Vital Signs: Last Vital Signs Temp 97.4 F 06/05/21 08:00 Pulse 85 06/05/21 09:07 Resp 18 06/05/21 08:00 BP 112/76 06/05/21 09:07 Pulse Ox 97 06/05/21 08:00 Body Mass Index 23.8 Const General:?cooperative, comfortable, alert and awake Nutritional Appearance:?thin Orientation/consciousness:?patient oriented x3 Neck Neck:?Yes trachea midline, Yes supple and Yes no JVD Resp Effort & Inspection:?normal respiratory effort Auscultation:?clear to auscultation bilaterally Cardio Palpation:?abnormal PMI displaced PMI Rate:?regular rate Rhythm:?regular rhythm Heart sounds:?S1 normal heart sound present, S2 normal heart sound present, no click, no gallops and no murmurs GI Auscultation:?normal bowel sounds Neuro General:?patient oriented x3 and no focal motor deficits Extrem General:?Yes no clubbing, cyanosis or edema DS: Data Data Completed and Pending Labs on day of discharge: Laboratory Results - last 24 hr 06/05/21 06/05/21 06/05/21 06:22 06:22 06:22 WBC 8.5 RBC 4.76 Hgb 14.1 Hct 42.1 MCV 88.4 MCH 29.6 MCHC 33.5 RDW 17.5 H Plt Count 224 MPV 10.6 Absolute Nucleated RBC 0.000 Nucleated RBC % (auto) 0.0 Sodium 137 Potassium 3.9 Chloride 95 L Carbon Dioxide 30 H Anion Gap 16 BUN 60 H Creatinine 1.58 H Estim Creat Clear Calc 48.1 Estimated GFR 44 Fasting Glucose 82 Calcium 9.4 Magnesium 2.2 B-Natriuretic Peptide 1087 H Discharge Plan Discharge Patient Disposition: er [facility] Discharge Diagnosis: chf Referrals: Physician,Unknown [Primary Care Provider] - 1 Week Discharge Medications: New spironolactone 25 mg Tablet 12.5 mg PO DAILY Qty: 30 RF: 0 Continued acetaminophen 325 mg Tablet 325 mg PO TID@0900,1300,1700 RF: 0 bumetanide 2 mg Tablet 2 mg PO BID@0600,1200 RF: 0 clonazepam 0.5 mg Tablet 0.5 mg PO BID@0900,1700 RF: 0 digoxin [Digitek] 125 mcg (0.125 mg) Tablet 125 mcg PO DAILY RF: 0 docusate sodium 100 mg Tablet 100 mg PO DAILY RF: 0 Eliquis 5 mg Tablet 5 mg PO BID RF: 0 Entresto 24-26 mg Tablet 1 tab PO DAILY RF: 0 aspirin 81 mg Capsule 81 mg PO DAILY RF: 0 melatonin 3 mg Tablet 6 mg PO DAILY RF: 0 ferrous sulfate 325 mg (65 mg iron) Tablet 325 mg PO DAILY RF: 0 metoprolol succinate 25 mg Tablet Extended Release 24 Hr 25 mg PO BEDTIME RF: 0 ezetimibe 10 mg Tablet 10 mg PO DAILY RF: 0 sennosides [senna] 8.6 mg Tablet 8.6 mg PO DAILY RF: 0 mirtazapine 45 mg Tablet 45 mg PO BEDTIME RF: 0 sertraline 50 mg Tablet 125 mg PO DAILY RF: 0 olanzapine 20 mg Tablet 20 mg PO BEDTIME RF: 0 albuterol sulfate [ProAir HFA] 90 mcg/actuation Hfa Aerosol Inhaler 2 puff INHALATION QID PRN (Reason: Wheezing) RF: 0 Stiolto Respimat 2.5-2.5 mcg/actuation Mist 2 puff INHALATION DAILY RF: 0 Discharge Orders: Discharge Order (Routine); Ordered 06/05/21 Ordered By: Hiro Solis Diet: advance to usual diet Activity on Discharge: As tolerated Stand Alone Forms: Patient Portal Discharge page Care Plan Goals: recovery Health Concerns: chf Plan of Treatment: jeevan meds, Assessment: see above
[2021-06-05 11:29] LABS: COVID-19 Test Negative (Negative)
[2021-06-05 11:51] VITALS: BP 97/69; PULSE 78; RESP 18; TEMP 36.2; O2SAT 97
--- NOTE | 2021-06-05 12:12 | MHC.CM.PN ---
CM SPOKE W/[facility] AND SCHEDULED A D/C TIME OF 1PM FOR PT, CM ALSO CONTACTED PT'S [employer] [employer] AT 12:10PM TO LET HER KNOW PT WOULD BE TRANSFERRING BACK TODAY. UNIT/NSG/HOSPITALIST AWARE OF PT DISPO. D/C PLAN: [facility] FOR LTC, [facility] FOR BLS TRANSPORT
== END 2021-06-05 13:11 | disposition skilled nursing facility (03) | DRG 194 ==
LOC: HO.ED 08:34 → HO.EDOVER 15:29 → HO.IMC 16:02 → HO.S3 16:36
PROVIDERS: Emergency Medicine; Family Medicine; Internal Medicine; Admitting Provider Student in an Organized Health Care Education/Training Program; Emergency Provider Student in an Organized Health Care Education/Training Program; Visit Provider Internal Medicine
DX: I50.43 Acute on chronic combined systolic (congestive) and diastolic (congestive) heart failure (principal); J96.21 Acute and chronic respiratory failure with hypoxia; I48.91 Unspecified atrial fibrillation; I25.10 Atherosclerotic heart disease of native coronary artery without angina pectoris; Z99.81 Dependence on supplemental oxygen; I25.5 Ischemic cardiomyopathy; F39 Unspecified mood [affective] disorder; R04.2 Hemoptysis; J44.1 Chronic obstructive pulmonary disease with (acute) exacerbation; I25.2 Old myocardial infarction; Z20.822 Contact with and (suspected) exposure to COVID-19; Z79.01 Long term (current) use of anticoagulants; Z87.891 Personal history of nicotine dependence; Z79.899 Other long term (current) drug therapy
CPT/HCPCS: 36415; 71045; 71250; 74176; 78580; 80048; 80053; 80162; 81003; 82803; 83605; 83735; 83880; 84484; 85025; 85027; 85379; 85610; 87040; 87635; 93005; 93306; 93970; 94640; 94660; 96374; 96375; 96376; 99285; A9540; J1170; J1940; J2270; J2920; J2930; Q9957